=== PATIENT | male | born 1970 | race Caucasian/White ===

== ENCOUNTER 2021-09-12 09:42 | Outpatient (CLI) | payer OTHER, SELFPAY ==
--- NOTE | ~2021-09-12 | US_ITS ---
EXAMINATION: US venous doppler LE RT EXAM DATE: 09/12/2021 10:32 INDICATION: Right leg swelling. TECHNIQUE: Multiple grayscale, color flow and Doppler images of the right lower extremity deep venous system were obtained and reviewed. There is no prior study for comparison. FINDINGS: The right common femoral, femoral and profunda veins demonstrate normal color flow, respira tory variation, augmentation and compressibility. Compressibility, color flow confirmed within the r ight popliteal, posterior tibial, peroneal, and greater saphenous veins. IMPRESSION: No right lower extremity deep venous thrombosis. Reviewed, dictated and finalized at location B. [facility]
[2021-09-12 10:28] LABS: Basophils Absolute Auto 0.1 K/mm3 (0.0-0.1); Basophils Percent Auto 1.5 % (0.2-1.2); Eosinophils Absolute Auto 0.2 K/mm3 (0-0.3); Eosinophils Percent Auto 4.2 % (0-4.4); Hematocrit 47.5 % (42.0-52.0); Hemoglobin 15.2 g/dL (14.0-18.0); Immature Granulocyte Absolute 0.01 K/mm3 (0.00-0.031); Immature Granulocyte Percent A 0.2 % (0-0.5); Lymphocytes Absolute Auto 2.19 K/mm3 (0.9-3.2); Lymphocytes Percent Auto 42.2 % (18.3-44.2); Mean Corpuscular Hemoglobin 25.7 pg (26-34); Mean Corpuscular Volume 80.4 fl (80-100); Mean Platelet Volume 9.4 fl (7.4-10.4); Monocytes Absolute Auto 0.8 K/mm3 (0.1-0.6); Monocytes Percent Auto 14.8 % (2.6-8.5); Neutrophils Absolute Auto 1.9 K/mm3 (1.3-6.7); Neutrophils Percent Auto 37.1 % (45.5-73.1); Platelet Count Result 252 k/mm3 (150-375); Red Blood Count 5.91 M/mm3 (4.6-6.20); Red Cell Distribution Width 15.9 % (11.5-14.5); White Blood Count 5.2 K/mm3 (4.5-10.0)
== END 2021-09-12 09:43 | disposition home or self-care (01) ==
PROVIDERS: PCP Student in an Organized Health Care Education/Training Program; Visit Provider Student in an Organized Health Care Education/Training Program
DX: E78.5 Hyperlipidemia, unspecified (principal); M79.89 Other specified soft tissue disorders
CPT/HCPCS: 36415; 85025; 93971

== ENCOUNTER 2022-12-17 11:15 | Outpatient (RCR) | payer OTHER, SELFPAY ==
--- NOTE | 2022-11-14 08:59 | PTOPEVAL1 ---
Assessment and note entered by Lucy Bae, PT Evaluation Information Assessment Status Evaluation Diagnosis dorsalgia Onset Aug 2022 Subjective Information chronic back pain, gradually increase in pain without injury to back; trying to get disability; trying to get MRI but insurance will not cover until have PT; have had 2 back surgeries; want to see the back surgeon, but cannot see him for an appointment, until I have an MRI; last saw the surgeon in 2018, as follow up after last back surgery; Reported Pain Level Pain Score Self Report Additional Pain Score Comments pain range of 3-7/10 in past week; nerve pains that are intense- from low back to L toes--ice pick driven into leg, sometimes in R leg but not as much; R leg swells up, both legs have strange color--dr did circulation tests and nothing showed up; L leg numb since surgery: buttocks, lateral thigh and calf and lateral foot/ankle; reported tolerances: standing 10-15 min; walking 10-15 min; sleep awaken every 1-2 hours; decrease pain with moving/changing position, heat pad, stretch, muscle creams; used to take narcotics, but now take suboxone-- helps some;take over the counter and muscle relaxer Assessment PT Clinical Summary Festus has the diagnosis of dorsalgia. He reports chronic back pain, with history of 2 lumbar surgeries. He has not worked since 2017 due to back pain. Sleeping, sitting, walking and standing tolerances are decreased. His pain is radicular into both R and L LE to toes. Oswestry self assessment score of 54% limitation. With the evaluation: he has poor standing posture with rounded spine and rotation of trunk; limited lumbar mobility; spasms throughout thoracic and lumbar paraspinals; tightness of anterior hip/quads; pain is increased with supine L hip IR and prone on elbows; Discussed aquatic therapy with pt- he reports he does not like to get into the pool with his kids. When he is in the pool, feels great, but when he gets out--back pain is worse because of the heavy feeling. Skilled PT services are indicated for modalities to decrease pain and
--- NOTE | 2022-11-19 10:50 | PCPTNOTE ---
Patient did not show up for scheduled appointment this date. Called patient and he stated that no one called, texted or Email him with the therapy times. Offered him another time today, and rescheduled for 2 pm.
--- NOTE | 2022-11-19 14:32 | PCPTNOTE ---
Pt canelled because he had to take child to urgent care.
--- NOTE | 2022-11-26 11:44 | PCPTNOTE ---
Patient called & cancelled scheduled appointment this date due to not feeling well secondary to medication.
--- NOTE | 2022-12-04 11:52 | PTOPPROG ---
Assessment and note entered by Lucy Bae, PT Evaluation Information Assessment Status Progress Diagnosis dorsalgia Onset Aug 2022 Subjective Information Festus reports: from therapy have some good stretches to help my back in the morning, tricks to help my back during the day; wants to continue therapy--it is helping; pain range in the past week: 3-8 /10; nerve and pinch, sharp pain--radicular pain L to toes and R to toes, more often in the L leg; increase pain standing and walking, activity; decrease pain with stretching, heat, pain meds help pain; Assessment PT Clinical Summary Festus has received 4 PT sessions. He called/ canceled 2 and did not show for 1 appointment. Compared to the initial eval: pain rating is the same at the low rating and 1 more at the high rating, but stated radicular pain is less intense and less often; increased flexibility of R and L quad and lumbar spine with prone on elbows; 2 minute walking test distance increased 50'; self assessment Oswestry score improved from 54% to 48% limitation in activity. He has been educated on a home exercise program and body mechanics/position. The goals were partially met. Continue PT treatment. Plan of Care Interventions Hot Pack/Cold Pack,Manual Therapy,Neuro Re- education,Patient/Caregiver Educati,Therapeutic Activities,Therapeutic Exercise,Ultrasound,Other Other Interventions taping PT Services Indicated Yes Treatment Frequency and 2x/wk for 3 weeks Duration These treatments will address the objective and functional deficits as defined above. The patient will be advanced safely and appropriately in order for the patient to progress towards his/her prior level of function. Additional exercises will be introduced and as well as a comprehensive home exercise program upon discharge, if needed, ?to ensure carryover of functional gains achieved in the clinic. This treatment plan has been reviewed and agreement upon by the patient.
--- NOTE | 2022-12-24 08:54 | PCPTNOTE ---
Patient called & cancelled scheduled appointment yesterday due to calling in sick
--- NOTE | 2022-12-25 07:48 | PCPTNOTE ---
Patient called & cancelled scheduled appointment this date due to still being sick
--- NOTE | 2022-12-29 10:19 | PCPTNOTE ---
pt did not show for today's reeval appt; called pt and unable to leave voice mail due to mailbox is full .
--- NOTE | 2023-01-13 15:36 | PCPTNOTE ---
PHYSICAL THERAPY DISCHARGE 01-13-23 Attending Provider: Greg Steve MD Patient:Michael Hodgson Date of :1970 Mr. Hodgson has not returned for any further treatments since 12/17/2022, therefore he will be discharged at this time. He has received a total of 5 PT sessions for low back pain. He called and canceled 4 and did not show for 3 appointments. The goals were not addressed. Thank you for referring this patient to [facility].
--- NOTE | 2023-01-13 15:39 | PCPTNOTE ---
pt did not show for today's reevaluation; he has been d/c due to multiple N/S and cancelations.
== END 2023-01-15 11:27 | disposition home or self-care (01) ==
LOC: ANHPT 11:15
PROVIDERS: PCP Student in an Organized Health Care Education/Training Program; Visit Provider Psychiatry & Neurology Neurology
DX: M54.9 Dorsalgia, unspecified (principal); M54.2 Cervicalgia
CPT/HCPCS: 97014; 97110; 97161; 97530; 99199; G0283

== ENCOUNTER 2023-01-07 11:32 | Outpatient (CLI) | payer OTHER, SELFPAY ==
--- NOTE | 2023-01-07 11:47 | ECG_ITS ---
Measurements Intervals [place] Rate: 96 P: 6 TN: 144 QRS: -10 QRSD: 100 T: 29 QT: 321 QTc: 406 Interpretive Statements SINUS RHYTHM NO PREVIOUS ECG AVAILABLE FOR COMPARISON Electronically Signed On 01-07-2023 18:14:46 CDT by Eden Jones M.D.
== END 2023-01-07 11:33 | disposition home or self-care (01) ==
LOC: ANHSURGERY 11:35
PROVIDERS: PCP Student in an Organized Health Care Education/Training Program; Visit Provider Otolaryngology
DX: Z01.810 Encounter for preprocedural cardiovascular examination (principal); I10 Essential (primary) hypertension
CPT/HCPCS: 93005

== ENCOUNTER 2023-01-09 01:18 | Day surgery (SDC) | payer OTHER, SELFPAY ==
[2023-01-05 10:39] VITALS: BMI 30.4
--- NOTE | 2023-01-05 10:45 | PC.NURSE ---
Report to the Outpatient Waiting Room, entrance under the green pavilion located off [facility], at time 10:30 on date 01/09/23. Planned Procedure Time: 12:30. Time changes happen often and if your time is changed the preop area will call you the afternoon before. - You and your visitor will be asked to self-screen and do not enter if you have any COVID symptoms. - A mask is optional within the hospital at this time. Patients may have clear liquids (water, carbonated beverages, clear teas, apple juice) until 3 hours prior to surgery (9:30) with a maximum of 20 ounces. - No food from midnight until time of surgery Take the following medications with a SIP of water the morning of surgery: SUBOXONE, GABAPENTIN DO NOT STOP ANY OF YOUR OTHER PRESCRIPTION MEDICATIONS PRIOR TO SURGERY?EXCEPT THE FOLLOWING Medications to discontinue per physician: NABUMETONE Date to take last dose: PER DR. RUSSO Please no make-up, nail japanese, hairspray, perfume, deodorant, or body powder the day of surgery. No jewelry (including any body piercings) or valuables the day of surgery, leave them at home. Please take a shower or bath the night before, or the morning of, surgery with an antibacterial soap. Wear comfortable, loose fitting clothing. - Jewelry must be removed prior to entering the operating room. Rings and piercings that are not removed may be cut off. - The hospital will not accept responsibility for valuables. - Please leave all valuables, including medications, at home the day of surgery. If you are going home after surgery, a licensed horse and wagon driver must drive you home. - NO public transportation without another adult if you receive anesthesia. - We recommend that an adult stay with you for 24 hours following discharge. - We also recommend that you do not drive, make important decision, drink alcoholic beverages, or take any drugs that were not prescribed by your health care provider for at least 24 hours after your discharge time. Follow any additional instructions given to you from your surgeon. If you or anyone in your household have experienced Covid symptoms in the past week, please notify your surgeon or the nurse liaison at the phone number below for possible testing. Telephone instructions given to PT & SPOUSE and asked if any additional questions and then verbalized understanding. Patient advised to call surgeon office or pre surgery nurse liaison [phone] if any additional questions.
--- NOTE | 2023-01-08 10:02 | P.PNAN_ITS ---
Anes - Initial Pre Proc Eval Procedure: Operation Date: 01/09/23 13:30 Proposed Procedures p Endoscopic Septoplasty - Jacques Mosqueda MD s Bilateral Inferior Turbinectomy With Outfracture - Jacques Mosqueda MD Date/Time: 01/08/23 10:02 Surgeon: Jacques Mosqueda MD Pre Op Diagnosis: nasal septal deviation and turbinate hypertrophy Patient Data Age: 52 Gender: M Height: 1.79 m Weight: 97.55 kg Allergies Allergy/AdvReac Type Severity Reaction Status Date / Time Penicillins Allergy Unknown Anaphylaxis Verified 01/09/23 12:23 Home Medications Medication Instructions Recorded Confirmed Type methocarbamol 750 mg tablet See Rx Instructions .Route 11/06/21 01/05/23 Rx .COMPLEX #90 tabs buprenorphine 4 mg-naloxone 1 mg 1 film sublingual DAILY 03/05/22 01/09/23 History sublingual film (Suboxone) nabumetone 500 mg tablet 500 mg PO BID #60 tabs 03/07/22 01/05/23 Rx gabapentin 600 mg tablet See Rx Instructions .Route 07/07/22 01/09/23 Rx .COMPLEX #90 tabs lisinopril 20 mg tablet 20 mg PO DAILY 07/07/22 01/05/23 History fluticasone propionate 50 1 - 2 spray intranasal BID #16 11/05/22 01/05/23 Rx mcg/actuation nasal grams spray,suspension omeprazole 40 mg capsule,delayed 40 mg PO DAILY 11/05/22 01/05/23 History release amitriptyline 50 mg tablet See Rx Instructions .Route 12/24/22 01/05/23 Rx .COMPLEX #30 tabs Patient hx anesthesia problems: none Family hx anesthesia problems: none Results Review: All pre-operative results and documents have been reviewed as part of the pre- operative evaluation. [facility] Past Medical History Medical History (Updated 01/08/23 @ 18:10 by Jacques Mosqueda MD) Chronic pain Deviated nasal septum Hyperlipidemia Hypertension Increased BMI PONV (postoperative nausea and vomiting) Sleep apnea Family History Family History Mother Patient's mother is in good health Father Patient's father is in good health Social History Social History Social History: current smoker Smoking packs per day: 1 Smoking cigarettes per day: 20.0 Years smoked: 38 Smoking pack-years: 38.00 Smoking status: Current every day smoker Tobacco type: cigarettes and e-cigarettes/vaping Alcohol intake: never Substance use: never Substance use type: does not use Living arrangements: with family Spiritual care concerns: No Anes - Eval Final PreProcedure Day of Procedure 01/08/23 10:02 Patient weight: obese Heart: regular rate and rhythm Lungs: clear to auscultation Airway: Mallampati scale class III Neurological: alert and oriented Last oral intake: >/= 8 hours ASA classification: III Emergent: no Anesthetic plan: proceed Anesthesia type and monitoring: general ETT and standard monitoring Results Review: All pre-operative results and documents have been reviewed as part of the pre- operative evaluation. Informed Consent: The patient's anesthetic plan and its attendant risks and benefits were discussed with the patient/family/POA. Questions were solicited and answers provided to the satisfaction of the patient/family/POA.
--- NOTE | 2023-01-08 18:10 | PM.IMHP ---
H&P: HPI History of Present Illness Date/Time: 01/08/23 18:10 Chief Complaint: Septal deviation turbinate hypertrophy nasal obstruction nasal congestion Narrative: planned procedure Review of Systems Review of Systems: All systems reviewed & are unremarkable except as noted in HPI and below [facility] Past Medical History Medical History (Updated 01/08/23 @ 18:10 by Jacques Mosqueda MD) Chronic pain Deviated nasal septum Hyperlipidemia Hypertension Increased BMI PONV (postoperative nausea and vomiting) Sleep apnea Family History Family History Mother Patient's mother is in good health Father Patient's father is in good health Social History Social History (Reviewed 11/05/22 @ 10: by TARAH Villarreal) Social History: current smoker Smoking packs per day: 1 Smoking cigarettes per day: 20.0 Years smoked: 38 Smoking pack-years: 38.00 Smoking status: Current every day smoker Tobacco type: cigarettes and e-cigarettes/vaping Alcohol intake: never Substance use: never Substance use type: does not use Living arrangements: with family Spiritual care concerns: No Meds Home Medications and Allergies Home Medications Medication Instructions Recorded Confirmed Type methocarbamol 750 mg tablet See Rx Instructions .Route 11/06/21 01/05/23 Rx .COMPLEX #90 tabs buprenorphine 4 mg-naloxone 1 mg 1 film sublingual DAILY 03/05/22 01/05/23 History sublingual film (Suboxone) nabumetone 500 mg tablet 500 mg PO BID #60 tabs 03/07/22 01/05/23 Rx gabapentin 600 mg tablet See Rx Instructions .Route 07/07/22 01/05/23 Rx .COMPLEX #90 tabs lisinopril 20 mg tablet 20 mg PO DAILY 07/07/22 01/05/23 History fluticasone propionate 50 1 - 2 spray intranasal BID #16 11/05/22 01/05/23 Rx mcg/actuation nasal grams spray,suspension omeprazole 40 mg capsule,delayed 40 mg PO DAILY 11/05/22 01/05/23 History release amitriptyline 50 mg tablet See Rx Instructions .Route 12/24/22 01/05/23 Rx .COMPLEX #30 tabs Allergies Allergy/AdvReac Type Severity Reaction Status Date / Time Penicillins Allergy Unknown Anaphylaxis Verified 04/10/23 10:36 Exam Narrative: septal deviation turbinate hypertrophy Assessment and Plan Assessment and plan (1) Nasal obstruction: Code(s): J34.89 - Other specified disorders of nose and nasal sinuses Status: Acute Assessment and Plan: plan operating room endoscopic assisted septoplasty and turbinate reduction with outfracture risks were discussed including bleeding infection need for splints need for narcotics need for postop debridements failure to resolve symptoms need for continued use of sprays and medications CSF leak brain brain damage change in vision blindness septal perforation damage to any structure above the clavicles by myself damage to any structure during the induction and maintenance of anesthesia. Patient voiced understanding of these risks and agreed. (2) Hypertrophy of both inferior nasal turbinates: Code(s): J34.3 - Hypertrophy of nasal turbinates Status: Acute (3) Deviated nasal septum: Code(s): J34.2 - Deviated nasal septum Status: Acute (4) Nasal obstruction: Code(s): J34.89 - Other specified disorders of nose and nasal sinuses Status: Acute
[2023-01-09] VITALS (9 sets, daily range): BP systolic 125–165; BP diastolic 71–91; PULSE 87–107; RESP 10–18; TEMP 36.7–37.3; O2SAT 93–98; BMI 30.6
--- NOTE | 2023-01-09 07:14 | WPDHPUPDATE1 ---
History and Physical Update Update Date/Time: 01/09/23 07:14 History and Physical has been reviewed, including an updated exam of the patient. There are NO changes in the patient's condition. Risks, benefits, and alternatives have been discussed and questions answered. Patient agrees to proceed with procedure.
[2023-01-09] MEDS: LACTATED RINGERS 1,000 ML 30 ML IV CONT ×2 (12:10→15:59)
[2023-01-09] MEDS: ACETAMINOPHEN 500 MG TABLET 1000 MG PO (12:17)
[2023-01-09] MEDS: ceFAZolin 2 GM/D5W 50 ML 2 GM/50 ML BAG IVPB (14:10)
[2023-01-09] MEDS: OXYMETAZOLINE HCL 0.05% NAS 15 ML BTL (*BKC) 1 SPRAY NASAL (14:34)
[2023-01-09] MEDS: MUPIROCIN 2% OINT 22 GM TUBE 1 APPLIC EACH NARE (15:21)
[2023-01-09] MEDS: LIDO 1%/EPINEPHRINE 1:100,000 50 ML VIAL 15 ML INFILTRATE (15:21)
--- NOTE | 2023-01-09 17:17 | P.OP_ITS ---
Procedure Note - Detailed Date of Procedure 01/09/23 Pre-op Diagnosis nasal septal deviation and turbinate hypertrophy Post-op Diagnosis Same Procedure Performed Endoscopic assisted septoplasty inferior turbinate reduction with outfracture Surgeon Jacques Mosqueda MD Anesthesia General Indications see above Findings severely deviated septum S shaped turbinate hypertrophy well reduced no concomitant perforations are perforations abutting each other. Description of Procedure Patient identified consent verified. Patient brought operating room. Time- out performed. General anesthesia induced endotracheal tube secured airway. Patient prepped draped position. Afrin-soaked pledgets placed in bilateral nasal passages allowed to sit for 5 minutes. Second time-out performed. Afrin- soaked pledgets removed septum severely deviated. 10 cc 1% lidocaine 1 100,000 parts epinephrine injected deep nasal septum and heads of inferior turbinates. [place] incision made left nasal septal flap elevated. Small tear anteriorly osteotome utilized to cross over and a cartilage that would be removed. Right nasal septal flap elevated. Small perforation not abutting left-sided perforation. Cartilage removed combination osteotome David forceps Efren Yarbroughton forceps. Septum perfectly straight afterwards [place] incision closed with 3 interrupted 5 0 fast gut sutures. Splints placed. Turbinates reduced in the submucosal plane bilaterally anteriorly using microdebrider with inferior turbinate blade. They were then outfractured. Nasal airway much more pain bilaterally. Patient tolerated the procedure well no complications blood loss 25 cc. I performed all dictated portions. [place] splints were then placed sutured anteriorly using a mattressed 3-0 nylon suture. Patient taken to PACU no complications. Estimated Blood Loss -25.0 Drains No Packing No Pathology None sent Complications No immediate complications Condition Stable Disposition PACU [facility] Billing Surgery - Charge Forward: Surgery Billing
== END 2023-01-09 18:00 | disposition home or self-care (01) ==
PROVIDERS: PCP Student in an Organized Health Care Education/Training Program; Visit Provider Otolaryngology
PROC: (CPT 30520; principal; 2023-01-09 13:30)
DX: J34.2 Deviated nasal septum (principal); J34.3 Hypertrophy of nasal turbinates; J34.89 Other specified disorders of nose and nasal sinuses; I10 Essential (primary) hypertension; E78.5 Hyperlipidemia, unspecified; G89.29 Other chronic pain; G47.30 Sleep apnea, unspecified; F17.290 Nicotine dependence, other tobacco product, uncomplicated; F17.210 Nicotine dependence, cigarettes, uncomplicated; Z79.891 Long term (current) use of opiate analgesic; E66.9 Obesity, unspecified; Z68.30 Body mass index [BMI] 30.0-30.9, adult
CPT/HCPCS: 30520; 30140; A9270; J0330; J0690; J1100; J2250; J2405; J2704; J3010; J7120

== ENCOUNTER 2023-03-12 13:45 | Outpatient (RCR) | payer OTHER, SELFPAY ==
--- NOTE | 2023-02-13 12:16 | PTOPEVAL1 ---
Assessment and note entered by Azul Ruvalcaba PT Evaluation Information Assessment Status Evaluation Diagnosis back pain, knee pain Onset back pain chronic, knee pain unknown onset Subjective Information Patient referred to PT due to back and L knee pain . Patient reports he stopped physical therapy a month or so again and his back pain returned. Patient reports L knee pain began right when he stopped physical therapy. Patient reports pain in back and left knee as 5/10. No imaging has been completed. Pain in back and L knee limit ability to perform prolonged standing at home. Goal: to decrease pain in order to perform chores in home without pain Reported Pain Level Pain Score 5,5: Self Report Assessment PT Clinical Summary Patient is 52 year old male referred to physical therapy due to back pain and left knee pain. Patient rates pain as 5/10 in both locations on this date, back pain radiates into left leg currently. Patient presents with decreased lumbar extension, decreased knee flexion range of motion, and decreased strength of L hip extensor/knee flexors/ankle dorsiflexors. Recommending skilled therapy services 1-2x/wk for 4 weeks in order to improve core and lower extremity strength, improve mobility of lumbar spine and L knee in order to decrease reports of pain and radicular symptoms Plan of Care Interventions Aquatic Therapy,Electrical Stimulation,Gait Training,Hot Pack/Cold Pack,Manual Lymph Drainage, Manual Therapy,Mechanical Traction,Neuro Re- education,Patient/Caregiver Education,Therapeutic Activities,Therapeutic Exercise,Ultrasound Other Interventions IASTM, taping, cupping PT Services Indicated Yes Treatment Frequency and 1-2x/wk for 4 weeks Duration These treatments will address the objective and functional deficits as defined above. The patient will be advanced safely and appropriately in order for the patient to progress towards his/her prior level of function. Additional exercises will be introduced and as well as a comprehensive home exercise program upon discharge, if needed, ?to ensure carryover of functional gains achieved in the clinic. This treatment plan has been reviewed and agreement upon by the patient.
--- NOTE | 2023-02-27 10:33 | PCPTNOTE ---
Patient did not show up for scheduled appointment this date. Called and spoke with Pt. He apologized for forgetting to call. I'm sorry, I forgot to call. My father in law is sick and I'm taking him to the urgent care. I'm sorry. Reassured Pt and let him know we understand family emergencies happen. This is Pt's first N/S.
--- NOTE | 2023-03-05 10:53 | PCPTNOTE ---
Patient did not show up for visit, called patient with no answer left voicemail. Instructed patient to call for further scheduling.
--- NOTE | 2023-03-12 14:20 | PTOPDC ---
Assessment and note entered by Azul Ruvalcaba, PT Evaluation Information Assessment Status Discharge Diagnosis back pain, knee pain Onset back pain chronic, knee pain unknown onset Subjective Information Patient reports pain as 3/10 in low back into foot and L knee. Patient reports he does feel improvements. Patient does say when he does his exercises he notices improvement in his pain. Patient reports he is very busy and has missed some recent therapy visits. Patient agrees that he is ready for DC from therapy due to noticing improvement in mobility when exercises completed however chronic pain continues to be present. Reported Pain Level Pain Score 3,3: Self Report Assessment PT Clinical Summary Patient has partially met goals with pain being decreased to 3/10 in back and L knee. Patient has demonstrated improvement in LLE strength, L knee range of motion, mobility of lumbar spine at this time and also reports a decrease in LLE radicular symptoms. Patient reports pain is still a 3/10 end of session however states that the pain has eased up some. Patient reports moments of intermittent relief in pain but it does not last. Will DC PT due to max progress achieved and patient reporting he feels better when he keeps up with his exercises. Reviewed home exercise program for back and knee and educated regarding importance of compliance. Reviewed use of heat/ice in home environment. Plan of Care PT Services Indicated No
== END 2023-03-12 15:23 | disposition home or self-care (01) ==
LOC: ANHPT 13:45
PROVIDERS: PCP Student in an Organized Health Care Education/Training Program
DX: M25.562 Pain in left knee (principal)
CPT/HCPCS: 97014; 97110; 97140; 97162; 97530; 99199; G0283

== ENCOUNTER 2023-05-19 09:24 | Observation (INO) | payer OTHER, SELFPAY ==
[2023-05-19] VITALS (16 sets, daily range): BP systolic 155–220; BP diastolic 89–115; PULSE 86–111; RESP 12–25; TEMP 36.3–36.7; O2SAT 95–100; BMI 31.6
--- NOTE | ~2023-05-19 | XR_ITS ---
EXAMINATION: XR cholangiogram surg 1st inj DATE: 05/21/2023 13:28 INDICATION: Intraoperative cholangiogram TECHNIQUE: 254 fluoroscopic images of the right upper quadrant were obtained during intraoperative ch olangiography performed by the surgeon. I was not present in the operating room. Fluoroscopy exposure time was 49.7 seconds. COMPARISON: None. FINDINGS: No stones are identified in the common bile duct. There appears to be a stricture of the di stal common bile duct. IMPRESSION: 1. No stones of the common bile duct with possible common bile duct stricture. Follow-up with MRCP or ERCP is recommended. Reviewed, dictated and finalized at location A.
--- NOTE | ~2023-05-19 | US_ITS ---
EXAMINATION: US right upper quadrant DATE: 05/20/2023 14:55 INDICATION: Acute cholecystitis TECHNIQUE: Multiple grayscale and Doppler ultrasound images of the abdomen were obtained. COMPARISON: CT dated 05/19/2023 FINDINGS: The majority the pancreas is obscured. The visualized portion of the pancreatic body appears normal. Liver has normal echogenicity and contour, with a smooth surface. No liver lesion identified. No intr ahepatic biliary duct dilation suspected. Portal venous flow was seen in the hepatopetal, normal dire ction and has normal Doppler waveform. Gallbladder measures approximately 12.5 cm length and up to 4. 2 cm in maximal diameter. A few small nodular echogenic lesions without definitive posterior acoustic shadowing seen along the dependent wall of the gallbladder including at the neck, the largest measur ing 7 mm. These may represent gallbladder polyps. Cannot exclude small nonshadowing stones. IMPRESSION: 1. Echogenic foci in the dependent aspect of the gallbladder without definitive shadowing which may r epresent gallbladder polyps, sludge and/or stones. No significant gallbladder wall thickening or xavi cholecystic fluid. Reviewed, dictated and finalized at location A. IMPRESSION: 1. Echogenic foci in the dependent aspect of the gallbladder without definitive shadowing which may represent gallbladder polyps, sludge and/or stones. No sig nificant gallbladder wall thickening or pericholecystic fluid.
--- NOTE | ~2023-05-19 | XR_ITS ---
XR chest 2V 05/19/2023 10:19 Indication: Right lower anterior chest pain. Hypertension. Procedure: PA and lateral views of the chest Comparison: 10/05/2018 Findings: Heart size is normal. Bibasilar infiltrates. No pleural effusion. No edema. No pneumothorax . No acute osseous abnormality. Impression: 1: Bibasilar infiltrates may represent atelectasis or pneumonia. Reviewed, dictated and finalized at location L. Impression: 1: Bibasilar infiltrates may represent atelectasis or pneumonia.
--- NOTE | ~2023-05-19 | CT_ITS ---
EXAMINATION: CTA chest PE abdomen pel DATE: 05/19/2023 12:58 INDICATION: Right chest pain. Right upper quadrant abdominal pain. TECHNIQUE: Computed tomography angiography (CTA) of the chest was performed with 100 mL Omnipaque-350 intravenous contrast timed to evaluate the pulmonary arteries. Coronal maximum intensity projection 3D-reconstructions were created by the technologist. Computed tomography (CT) of the abdomen and pelv is was performed with intravenous contrast. Automated exposure control and iterative reconstruction t echnique were employed. The dose-length product was 1566.47 mGy-cm. COMPARISON: None. FINDINGS: CTA chest: The lungs demonstrate mild atelectasis. There is a 5 mm nodule in left lower lobe, likely benign. Calcified right lung nodules and calcified right hilar lymph nodes are consistent with old gr anulomatous disease. There is a pneumatocele in right middle lobe. No pleural effusion. The heart siz e is normal. No pericardial effusion. There is no pulmonary embolus. There is mild aortic atheroscler osis. There is mild chronic anterior wedging of multiple thoracic vertebral bodies. There is mild tho racic spondylosis. CT abdomen and pelvis: The liver is normal. The gallbladder is distended and contains gallstones. The re is a gallstone lodged in the gallbladder neck. Calcifications in the spleen are consistent with ol d granulomatous disease. The pancreas, adrenal glands, and kidneys are normal. There are no dilated l oops of bowel. The appendix is normal. There are no pathologically enlarged lymph nodes. There is no free intraperitoneal fluid. There is severe lumbar spondylosis. IMPRESSION: 1. Acute cholecystitis. 2. No pulmonary embolus. Reviewed, dictated and finalized at location A.
--- NOTE | ~2023-05-19 | MR_ITS ---
EXAMINATION: MR MRCP wo/w con/w 3D wo ind DATE: 05/22/2023 12:41 INDICATION: Common bile duct stricture. TECHNIQUE: Magnetic resonance imaging (MRI) of the abdomen was performed without and with 20 mL Multi Juany intravenous contrast. Sequences included coronal T2-weighted FS FSE, coronal T2-weighted FSE, a xial T1-weighted LAVA, coronal FS FIESTA, axial dual-echo T1-weighted SPGR, coronal lava-FLEX, sagitt al T2-weighted FSE, axial T2-weighted FSE, and axial DWI. Thick-slab T2-weighted FSE images were obta ined for magnetic resonance cholangiopancreatography (MRCP). Maximum intensity projection 3-D reconst ructions of the volumetric data were created by the technologist. Postcontrast sequences included cor onal LAVA-flex and time course of axial T1-weighted LAVA. COMPARISON: CT abdomen and pelvis 05/19/2023, cholangiogram 05/21/2023 FINDINGS: ABDOMEN MRI: The liver and spleen are normal. The pancreas, adrenal glands, and kidneys are normal. T here are changes of cholecystectomy. There are no dilated loops of bowel. There are no pathologically enlarged lymph nodes. There is no free intraperitoneal fluid. ABDOMEN MRCP: The common duct is normal and measures 6 mm. No stone or abnormal mass. IMPRESSION: 1. No bile duct stricture. Reviewed, dictated and finalized at location A. IMPRESSION: 1. No bile duct stricture.
--- NOTE | 2023-05-19 09:26 | ECG_ITS ---
Measurements Intervals [place] Rate: 103 P: 22 DC: 174 QRS: -16 QRSD: 101 T: 32 QT: 325 QTc: 427 Interpretive Statements SINUS TACHYCARDIA POSSIBLE LEFT ATRIAL ENLARGEMENT [-0.1mV P WAVE IN V1/V2] ABNORMAL RHYTHM ECG COMPARED TO ECG 01/07/2023 11:58:18 SINUS TACHYCARDIA NOW PRESENT Electronically Signed On 05-19-2023 11:27:51 CDT by Eden Jones M.D.
[2023-05-19 09:48] LABS: Basophils Absolute Auto 0.1 K/mm3 (0.0-0.1); Eosinophils Absolute Auto 0.2 K/mm3 (0-0.3); Eosinophils Percent Auto 2.6 % (0-4.4); Hemoglobin 17.2 g/dL (14.0-18.0); Immature Granulocyte Absolute 0.02 K/mm3 (0.00-0.031); Immature Granulocyte Percent A 0.3 % (0-0.5); Lymphocytes Absolute Auto 2.23 K/mm3 (0.9-3.2); Lymphocytes Percent Auto 30.5 % (18.3-44.2); Mean Corpuscular HGB Conc 32.5 g/dl (32-36); Mean Corpuscular Hemoglobin 28.4 pg (26-34); Mean Corpuscular Volume 87.5 fl (80-100); Mean Platelet Volume 10.4 fl (7.4-10.4); Monocytes Absolute Auto 0.7 K/mm3 (0.1-0.6); Neutrophils Absolute Auto 4.1 K/mm3 (1.3-6.7); Neutrophils Percent Auto 55.6 % (45.5-73.1); Platelet Count Result 213 k/mm3 (150-375); Red Blood Count 6.06 M/mm3 (4.6-6.20); Red Cell Distribution Width 14.4 % (11.5-14.5); White Blood Count 7.3 K/mm3 (4.5-10.0)
[2023-05-19 10:00] LABS: Alanine Aminotransferase 35 U/L (6-50); Albumin Level 4.5 g/dL (3.5-5.1); Alkaline Phosphatase 60 U/L (38-126); Anion Gap 5 mmol/L (8-16); Aspartate Amino Transferase 48 U/L (17-59); Bilirubin,Total 0.8 mg/dL (0.2-1.3); Blood Urea Nitrogen 15 mg/dL (9-20); Calcium 9.1 mg/dL (8.4-10.2); Carbon Dioxide 31 mmol/L (22-30); Chloride 97 mmol/L (98-107); Estimated CRCL calculation 113 ml/min; Estimated Glomerular Filt Rate > 60; Glucose 141 mg/dL (65-110); Lipase 38 U/L (23-300); Potassium 3.6 mmol/L (3.4-5.0); Sodium 133 mmol/L (137-145)
[2023-05-19 10:02] LABS: INR 0.9; Prothrombin Time 12.6 Seconds (11.1-14.7)
[2023-05-19 10:03] LABS: Partial Thromboplastin Time 27.9 SECONDS (22.3-36.8)
[2023-05-19 10:12] LABS: Troponin I < 0.012 ng/mL (0.000-0.034)
--- NOTE | 2023-05-19 11:11 | PC.NURSE ---
Received verbal order for pain meds from Dr. Kamara. When this RN went to give meds pt refused and stated he cannot take pain medicine. Pt states he only takes Suboxone which he already took today. This RN wasted medications and documented not given in NOV. Patient still waiting to be seen by provider.
--- NOTE | 2023-05-19 11:40 | PC.NURSE ---
Pt states he called doctor and they are okay with him having pain medication. Pain meds are going to be re ordered by verbal order to ALFA Escobar.
[2023-05-19] MEDS: HYDROmorphone HCL INJ (*CRX) 1 MG/ML SYR 0.5 MG IV PUSH ×3 (11:45→15:15)
--- NOTE | 2023-05-19 12:35 | ED.GENADULT ---
HPI - General Adult General Chief complaint: Chest Pain Stated complaint: chest pain Time Seen by Provider: 05/19/23 11:55 History of Present Illness HPI narrative: 52-year-old male presented the ED for evaluation of upper quadrant pain that radiates to her back that started approximately 830 this morning. Patient does report associated chest pain and shortness of breath. Patient reports he has had recent constipation and since this morning he has had decreased flatus and no stool. Patient denies any prior history of gallbladder disease denies any prior history of bowel obstruction or abdominal surgeries. Patient reports a right upper quadrant firmness/mass that started today. Related Data Home Medications Medication Instructions Recorded Confirmed buprenorphine 4 mg-naloxone 1 mg 1 film sublingual DAILY 03/05/22 05/19/23 sublingual film (Suboxone) lisinopril 20 mg tablet 20 mg PO DAILY 07/07/22 05/19/23 omeprazole 40 mg capsule,delayed 40 mg PO DAILY 11/05/22 05/19/23 release amitriptyline 50 mg tablet 50 mg PO HS 05/19/23 05/19/23 fluticasone propionate 50 1 - 2 spray intranasal BID PRN 05/19/23 05/19/23 mcg/actuation nasal Congestion spray,suspension gabapentin 600 mg tablet 600 mg PO BID 05/19/23 05/19/23 lactulose 20 gram/30 mL oral 20 g PO BID PRN Constipation 05/19/23 05/19/23 solution linaclotide 290 mcg capsule 290 mcg PO DAILY 05/19/23 05/19/23 methocarbamol 750 mg tablet 750 mg PO TID 05/19/23 05/19/23 multivit,Ca,min-iron 8 mg-folic 1 tablet PO DAILY 05/19/23 05/19/23 acid 200 mcg-lycopene 600 mcg tablet (Centrum Men) Allergies Allergy/AdvReac Type Severity Reaction Status Date / Time Penicillins Allergy Unknown Anaphylaxis Verified 05/19/23 09:37 Review of Systems Review of Systems: All systems reviewed & are unremarkable except as noted in HPI and below PMFSH Past Medical History Medical History Chronic pain Deviated nasal septum Hyperlipidemia Hypersomnia Hypertension Increased BMI PONV (postoperative nausea and vomiting) Sleep apnea Sleep walking Tobacco abuse Family History Family History Mother Patient's mother is in good health Father Patient's father is in good health Social History Social History Social History: current smoker Smoking packs per day: 1 Smoking cigarettes per day: 20.0 Years smoked: 35 Smoking pack-years: 35.00 Smoking status: Current every day smoker Tobacco type: e-cigarettes/vaping Additional smoking assessment comments: stopped smoking cigaretts a year ago. now vaps refills every 10 days Alcohol intake: former Substance use: former Substance use type: marijuana Last use: 21 years ago Lack of Transportation: No Lack of Food: Never True Current Housing: I Have Housing Concerned About Future Housing: No Difficulty Paying Gas/Electric Bills: No Difficulty Paying for Meds: No Currently Unemployed: No Education: High School Diploma/GED Difficulty w/ Childcare or Family Care: No Living arrangements: with family Spiritual care concerns: No Exam Narrative: APPEARANCE: Well appearing, no pain, no distress, well-nourished. HEAD: normocephalic, atraumatic. EYES: PERRLA/EOMI, conjunctivae clear. NOSE: Normal no drainage EARS:TMS clear with good light reflex. THROAT: Pharynx clear, no exudate. NECK: Supple. No adenopathy, no masses. RESPIRATORY: Airway patent, respirations nonlabored. Clear to auscultation bilaterally, no rales, rhonchi, wheezing. CARDIOVASCULAR: Regular rate and rhythm without murmurs rubs or gallops. ABDOMINAL: Right upper quadrant tenderness to palpation MUSCULOSKELETAL: Moves all extremities. Strength/ROM intact, No edema, No calf tenderness. NEURO: Alert. Cranial nerves II through XII intact. PSYCHIATRIC: Norm
[2023-05-19 13:10] LABS: Troponin I < 0.012 ng/mL (0.000-0.034)
[2023-05-19] MEDS: hydrALAZINE HCL 20 MG/ML VIAL 10 MG IV PUSH (13:28)
[2023-05-19] MEDS: metroNIDAZOLE 500 MG/ISO 100ML 500 MG/100 ML BAG 100 MG IVPB ×3 (13:33→23:18)
[2023-05-19] MEDS: SODIUM CHLORIDE 0.9% IV 1,000 ML 999 ML IV CONT (14:18)
[2023-05-19] MEDS: levoFLOXacin 750 MG/D5W 150 ML 750 MG/150 ML BAG 100 MG IVPB (14:42)
--- NOTE | 2023-05-19 15:16 | PM.IMHP ---
H&P: HPI History of Present Illness Date/Time: 05/19/23 15:16 Chief Complaint: Patient presented to the emergency department for chest pain, admitted for acute cholecystitis. Narrative: This is a 52-year-old male patient history of hypertension, chronic back pain and prior back surgery, former narcotic abuser on Suboxone, chronic constipation who presented to the emergency department after sudden development chest pain upon awakening this morning around 8:00 a.m.. Patient reports sustained chest pain since awakening with nausea no vomiting. Patient reports history of chronic constipation for which he takes Linzess and occasional lactulose. Patient took his daily medications this morning including Suboxone and so far has not been able to have any pain control with multiple doses of IV Dilaudid. CTA imaging completed to rule out aortic dissection identified acute cholecystitis with gallstone stuck in the neck of the gallbladder. No ductal dilation. Review of Systems Review of Systems: All systems reviewed & are unremarkable except as noted in HPI and below Constitutional: Comments: Denies fever chills ENT: Comments: No problems since prior sinus surgery Respiratory: Comments: No wheezing Gastrointestinal: Comments: Nausea without vomiting, feels like a mass is present right upper quadrant under his rib Genitourinary: Comments: No complaints PMFSH Past Medical History Medical History Chronic pain Deviated nasal septum Hyperlipidemia Hypersomnia Hypertension Increased BMI PONV (postoperative nausea and vomiting) Sleep apnea Sleep walking Tobacco abuse Family History Family History Mother Patient's mother is in good health Father Patient's father is in good health Social History Social History Social History: current smoker Smoking packs per day: 1 Smoking cigarettes per day: 20.0 Years smoked: 38 Smoking pack-years: 38.00 Smoking status: Current every day smoker Tobacco type: cigarettes and e-cigarettes/vaping Alcohol intake: former Substance use: former Substance use type: marijuana Last use: 21 years ago Lack of Transportation: No Lack of Food: Never True Current Housing: I Have Housing Concerned About Future Housing: No Difficulty Paying Gas/Electric Bills: No Difficulty Paying for Meds: No Currently Unemployed: No Education: High School Diploma/GED Difficulty w/ Childcare or Family Care: No Living arrangements: with family Spiritual care concerns: No Meds Home Medications and Allergies Home Medications Medication Instructions Recorded Confirmed Type buprenorphine 4 mg-naloxone 1 mg 1 film sublingual DAILY 03/05/22 05/19/23 History sublingual film (Suboxone) lisinopril 20 mg tablet 20 mg PO DAILY 07/07/22 05/19/23 History omeprazole 40 mg capsule,delayed 40 mg PO DAILY 11/05/22 05/19/23 History release amitriptyline 50 mg tablet 50 mg PO HS 05/19/23 05/19/23 History fluticasone propionate 50 1 - 2 spray intranasal BID PRN 05/19/23 05/19/23 History mcg/actuation nasal Congestion spray,suspension gabapentin 600 mg tablet 600 mg PO BID 05/19/23 05/19/23 History lactulose 20 gram/30 mL oral 20 g PO BID PRN Constipation 05/19/23 05/19/23 History solution linaclotide 290 mcg capsule 290 mcg PO DAILY 05/19/23 05/19/23 History methocarbamol 750 mg tablet 750 mg PO TID 05/19/23 05/19/23 History multivit,Ca,min-iron 8 mg-folic 1 tablet PO DAILY 05/19/23 05/19/23 History acid 200 mcg-lycopene 600 mcg tablet (Centrum Men) Allergies Allergy/AdvReac Type Severity Reaction Status Date / Time Penicillins Allergy Unknown Anaphylaxis Verified 05/19/23 09:37 Vital Signs Vital Signs - 24 hr 05/19/23 09:32 05/19/23 09:41
--- NOTE | 2023-05-19 15:40 | ADMGEN ---
This patient, Michael Hodgson, was admitted to IMU Room 203-01. Patient/family oriented to hospital policies and general routines including ID bracelet, bed and alarms, visiting hours, pain management, procedures, bathroom and other care routines, personal items, smoking policy, room service/diet, and visiting hours. Information on how to activate the Rapid Response Team has been discussed. Patient/Family are encouraged to report perceived risks to care and to ask questions if they do not understand what they are told or what they should do.
[2023-05-19] MEDS: LABETALOL HCL INJ 100 MG/20 ML VIAL 20 MG IV PUSH (15:48)
[2023-05-19] MEDS: HYDROmorphone HCL INJ (*CRX) 1 MG/ML SYR 2 MG IV PUSH (16:05)
[2023-05-19] MEDS: ONDANSETRON INJ 4 MG/2 ML VIAL IV PUSH (16:48)
[2023-05-19] MEDS: CALCIUM CARBONATE (TUMS) 500 MG (200 MG ELEMENTAL) 400 MG PO (16:48)
[2023-05-19] MEDS: SODIUM CHLORIDE 0.9% IV 1,000 ML 125 ML IV CONT (16:50)
[2023-05-19 16:57] LABS: Troponin I < 0.012 ng/mL (0.000-0.034)
[2023-05-19] MEDS: ACETAMINOPHEN 500 MG TABLET 1000 MG PO (17:15)
[2023-05-19] MEDS: GABAPENTIN 300 MG CAPSULE 600 MG PO (17:16)
[2023-05-19] MEDS: LORazepam INJ (*CRX) 2 MG/ML VIAL 1 MG IV PUSH (17:48)
[2023-05-19] MEDS: KETOROLAC 15 MG/ML VIAL (*BKC) IV PUSH ×2 (17:49→23:49)
[2023-05-19] MEDS: PANTOPRAZOLE SODIUM IV 40 MG VIAL IV PUSH (18:16)
[2023-05-19] MEDS: methocarbamoL 750 MG TABLET PO (18:17)
[2023-05-19] MEDS: AMITRIPTYLINE HCL 25 MG TABLET 50 MG PO (20:02)
[2023-05-19] MEDS: CALCIUM CARBONATE (TUMS) 500 MG (200 MG ELEMENTAL) PO (23:49)
[2023-05-19] MEDS: diphenhydrAMINE HCl CAP 25 MG CAPSULE 50 MG PO (23:50)
[2023-05-20] VITALS (14 sets, daily range): BP systolic 124–167; BP diastolic 61–83; PULSE 89–101; RESP 16–18; TEMP 36.5–37; O2SAT 94–100
[2023-05-20] MEDS: SODIUM CHLORIDE 0.9% IV 1,000 ML 125 ML IV CONT ×4 (00:05→23:59)
[2023-05-20] MEDS: metroNIDAZOLE 500 MG/ISO 100ML 500 MG/100 ML BAG 100 MG IVPB ×4 (05:13→23:59)
[2023-05-20 05:32] LABS: Basophils Percent Auto 0.2 % (0.2-1.2); Eosinophils Percent Auto 0.1 % (0-4.4); Hemoglobin 15.1 g/dL (14.0-18.0); Immature Granulocyte Absolute 0.04 K/mm3 (0.00-0.031); Immature Granulocyte Percent A 0.3 % (0-0.5); Lymphocytes Absolute Auto 1.15 K/mm3 (0.9-3.2); Lymphocytes Percent Auto 9.3 % (18.3-44.2); Mean Corpuscular HGB Conc 32.1 g/dl (32-36); Mean Corpuscular Hemoglobin 28.3 pg (26-34); Mean Corpuscular Volume 88.2 fl (80-100); Mean Platelet Volume 10.9 fl (7.4-10.4); Monocytes Absolute Auto 1.2 K/mm3 (0.1-0.6); Neutrophils Percent Auto 80.1 % (45.5-73.1); Platelet Count Result 192 k/mm3 (150-375); Red Blood Count 5.33 M/mm3 (4.6-6.20); Red Cell Distribution Width 14.4 % (11.5-14.5); White Blood Count 12.4 K/mm3 (4.5-10.0)
[2023-05-20 05:41] LABS: Alanine Aminotransferase 27 U/L (6-50); Albumin Level 3.7 g/dL (3.5-5.1); Alkaline Phosphatase 51 U/L (38-126); Anion Gap 7 mmol/L (8-16); Aspartate Amino Transferase 35 U/L (17-59); Bilirubin,Total 1.5 mg/dL (0.2-1.3); Blood Urea Nitrogen 14 mg/dL (9-20); Calcium 8.7 mg/dL (8.4-10.2); Carbon Dioxide 27 mmol/L (22-30); Chloride 98 mmol/L (98-107); Estimated CRCL calculation 114 ml/min; Estimated Glomerular Filt Rate > 60; Glucose 92 mg/dL (65-110); Lipase 23 U/L (23-300); Potassium 4.2 mmol/L (3.4-5.0); Sodium 132 mmol/L (137-145)
--- NOTE | 2023-05-20 08:56 | PM.IMPN ---
Progress Note: A&P Assessment and Plan (1) Acute cholecystitis: Code(s): K81.0 - Acute cholecystitis Status: Acute Assessment and Plan: Likely operating room today or tomorrow per General surgery (2) Hypertension: Code(s): I10 - Essential (primary) hypertension Status: Acute Assessment and Plan: Blood pressures remain elevated but improved over yesterday. Blood pressure reviewed on 05/20 (3) History of opioid abuse: Code(s): F11.11 - Opioid abuse, in remission Status: Acute Assessment and Plan: On Suboxone regularly, difficult to manage pain at this time for this reason. (4) Tobacco abuse: Code(s): Z72.0 - Tobacco use Status: Acute Assessment and Plan: Declined nicotine patch (5) Chronic pain: Code(s): G89.29 - Other chronic pain Status: Acute Assessment and Plan: Chronic back pain and history opioid abuse makes pain control of acute pain harder. (6) Sleep apnea: Code(s): G47.30 - Sleep apnea, unspecified Status: Acute Plan Gallbladder ultrasound as ordered by General surgery Possible MRCP verses lap choly with intraoperative coli angiogram Continue to attempt pain control. Time Spent With Patient Time with patient: 25 - 35 minutes Subjective Date/time seen: 05/20/23 08:56 Interval history: This is a 52-year-old male patient admitted for acute cholecystitis. Patient seen this morning states he still having a lot of pain but it is better than on admission yesterday. Patient has history of substance abuse was on Suboxone so we had difficulty controlling his pain. Surgery saw patient this morning plans on obtaining gallbladder ultrasound and likely operative removal. Unsure if surgery will happen today or tomorrow. Patient denies fever chills any new symptoms. Pain control still a problem. Review of Systems Review of Systems: All systems reviewed & are unremarkable except as noted in HPI and below Constitutional: Comments: Denies fever chills ENT: Comments: No problems since prior sinus surgery Respiratory: Comments: No wheezing Gastrointestinal: Comments: Nausea without vomiting, feels like a mass is present right upper quadrant under his rib Genitourinary: Comments: No complaints Exam Narrative: GENERAL: Alert and oriented seated on the edge of the bed in mild to moderate pain distress. Pleasant and conversational in full sentences. HEENT: Pupils are equally round and briskly reactive to light. Extraocular muscles are intact. Oral mucous membranes are moist without lesions. NECK: The patient has no noted JVD. No adenopathy is appreciated. CHEST/LUNGS: Lungs are clear bilaterally without rhonchi, rales, or wheezes. HEART: The patient has a normal rate and regular rhythm, sinus rhythm on telemetry monitoring by my own review. No murmurs, rubs, or gallops are appreciated. Distal pulses are 2+. ABDOMEN: The patient?s abdomen is soft, right upper quadrant tenderness. Bowel sounds are positive. EXTREMITIES: The patient has no peripheral edema. There is no focal long bone tenderness or deformity. SKIN: The patient?s skin is warm and dry, without rashes or lesions. PSYCHIATRIC: The patient has normal mental status and has an appropriate affect. Exhibiting significant pain. NEUROLOGIC: There are no gross deficits to the cranial nerves. Patient ambulates with steady gait. Objective Data Vital Signs Vital Signs: Vital Signs - 24 hr 05/19/23 09:32 05/19/23 09:41 05/19/23 09:54 Temperature 36.3 C L Pulse Rate 100 95 Respiratory Rate 12 Blood Pressure 155/114 H Pulse Oximetry 98 99 Oxygen Delivery Room Air Room Air 05/19/23 09:37 05/19/23 09:47 05/19/23 11:51 Temperature Pulse Rate 107 H 94 102 H Respiratory Rate 18 20 24 H Blood Pressure 155/114 H 187/98 H 220/115 H Pulse Oximetry 97 98 99 Oxygen Delivery 05/19/23 10:45
[2023-05-20] MEDS: CALCIUM CARBONATE (TUMS) 500 MG (200 MG ELEMENTAL) PO ×3 (09:09→21:24)
[2023-05-20] MEDS: THERAPEUTIC MULTIVITAMINS/MINERALS TAB (*BKC) 1 TABLET PO (09:09)
[2023-05-20] MEDS: LINACLOTIDE 145 MCG CAPSULE 290 MCG PO (09:09)
[2023-05-20] MEDS: lisinopriL 20 MG TABLET PO (09:09)
[2023-05-20] MEDS: PANTOPRAZOLE SODIUM IV 40 MG VIAL IV PUSH ×2 (09:10→21:24)
[2023-05-20] MEDS: GABAPENTIN 300 MG CAPSULE 600 MG PO ×2 (09:10→17:54)
[2023-05-20] MEDS: methocarbamoL 750 MG TABLET PO ×3 (09:10→17:54)
[2023-05-20] MEDS: KETOROLAC 15 MG/ML VIAL (*BKC) IV PUSH ×3 (09:11→21:24)
--- NOTE | 2023-05-20 09:22 | PM.CNGS ---
Assessment and Plan Assessment and plan (1) Acute cholecystitis: Code(s): K81.0 - Acute cholecystitis Status: Acute Assessment and Plan: I have reviewed the CT and discussed the findings with the patient. He has evidence of acute cholecystitis. I would like to get a gallbladder ultrasound this morning. White blood count and bilirubin did increase slightly from yesterday. Patient might need MRCP to further assess, or could consider laparoscopic cholecystectomy with intraoperative cholangiogram. I have discussed proceeding with laparoscopic cholecystectomy if symptoms are persisting. Patient will be kept NPO for now, but if surgery is going to be delayed until tomorrow, then could consider clear liquids today. (2) Hypertension: Code(s): I10 - Essential (primary) hypertension Status: Acute (3) Chronic pain: Code(s): G89.29 - Other chronic pain Status: Acute (4) History of opioid abuse: Code(s): F11.11 - Opioid abuse, in remission Status: Acute History of Present Illness Consult details Consult date: 05/20/23 Reason for consult: other (Acute cholecystitis) Requesting physician: Jose Francisco Kamara MD Narrative: This is a 52-year-old man who I am asked to see for acute cholecystitis. He presented to the emergency department yesterday morning with severe abdominal pain that started around 8 in the morning. He does not recall anything that he ate yesterday that could have caused it. He has never had any symptoms like this before. In the emergency department he was worked up for potential cardiac causes and underwent CT chest/abdomen/pelvis. This showed evidence of acute cholecystitis with gallstone at the neck of the gallbladder. He was also noted to have significant hypertension. He was admitted for further treatment. Since being admitted yesterday his pain is somewhat better. He denies any nausea or vomiting. He does deal with chronic constipation. Review of Systems Review of Systems: All systems reviewed & are unremarkable except as noted in HPI and below Constitutional: Constitutional: Denies chills and Denies fever(s) Eyes: Eyes: Denies change in vision ENT: Denies hearing loss, Denies neck pain and Denies sore throat Cardiovascular: Cardiovascular: Denies chest pain and Denies dyspnea Respiratory: Respiratory: Denies cough, Denies dyspnea and Denies wheezing Gastrointestinal: Gastrointestinal: Reports as per HPI Genitourinary: Genitourinary: Denies hematuria and Denies dysuria Musculoskeletal: Musculoskeletal: Denies arthralgias, Denies joint swelling and Denies neck pain Allergic/Immunologic: Allergic/Immunologic: Denies wheezing PMFSH Past Medical History Medical History (Updated 05/20/23 @ 09:28 by Jose R Lazo DO) Chronic pain Deviated nasal septum History of opioid abuse Hyperlipidemia Hypersomnia Hypertension Increased BMI PONV (postoperative nausea and vomiting) Sleep apnea Sleep walking Tobacco abuse Family History Family History Mother Patient's mother is in good health Father Patient's father is in good health Social History Social History Social History: current smoker Smoking packs per day: 1 Smoking cigarettes per day: 20.0 Years smoked: 35 Smoking pack-years: 35.00 Smoking status: Current every day smoker Tobacco type: e-cigarettes/vaping Additional smoking assessment comments: stopped smoking cigaretts a year ago. now vaps refills every 10 days Alcohol intake: former Substance use: former Substance use type: marijuana Last use: 21 years ago Lack of Transportation: No Lack of Food: Never True Current Housing: I Have Housing Concerned About Future Housing: No Difficulty Paying Gas/Electric Bills: No Difficulty Paying for Meds: No Currently Unemployed: No Education:
[2023-05-20] MEDS: ACETAMINOPHEN 500 MG TABLET 1000 MG PO (13:21)
[2023-05-20] MEDS: levoFLOXacin 750 MG/D5W 150 ML 750 MG/150 ML BAG 100 MG IVPB (14:38)
--- NOTE | 2023-05-20 19:58 | PC.NURSE ---
Report called for transfer to 3 Medical room 341. Patient informed, oncoming nurse updated and prepared to receive patient. Defer assessment. Patient currently A&Ox4 and in stable condition other than mild-moderate abdominal pain being reported.
[2023-05-20] MEDS: diphenhydrAMINE HCl CAP 25 MG CAPSULE 50 MG PO (21:24)
[2023-05-20] MEDS: AMITRIPTYLINE HCL 25 MG TABLET 50 MG PO (21:24)
[2023-05-21] VITALS (15 sets, daily range): BP systolic 100–160; BP diastolic 52–85; PULSE 85–126; RESP 12–20; TEMP 36.2–37.6; O2SAT 93–98
[2023-05-21] MEDS: ACETAMINOPHEN 500 MG TABLET 1000 MG PO (04:32)
[2023-05-21] MEDS: CALCIUM CARBONATE (TUMS) 500 MG (200 MG ELEMENTAL) PO (04:32)
[2023-05-21] MEDS: KETOROLAC 15 MG/ML VIAL (*BKC) IV PUSH (04:32)
[2023-05-21 05:59] LABS: Basophils Absolute Auto 0.1 K/mm3 (0.0-0.1); Basophils Percent Auto 0.3 % (0.2-1.2); Eosinophils Percent Auto 0.2 % (0-4.4); Hemoglobin 14.8 g/dL (14.0-18.0); Immature Granulocyte Absolute 0.08 K/mm3 (0.00-0.031); Immature Granulocyte Percent A 0.5 % (0-0.5); Lymphocytes Percent Auto 4.5 % (18.3-44.2); Mean Corpuscular HGB Conc 32.2 g/dl (32-36); Mean Corpuscular Hemoglobin 28.6 pg (26-34); Mean Platelet Volume 10.8 fl (7.4-10.4); Monocytes Absolute Auto 1.7 K/mm3 (0.1-0.6); Monocytes Percent Auto 10.7 % (2.6-8.5); Neutrophils Absolute Auto 12.9 K/mm3 (1.3-6.7); Neutrophils Percent Auto 83.8 % (45.5-73.1); Platelet Count Result 185 k/mm3 (150-375); Red Blood Count 5.17 M/mm3 (4.6-6.20); White Blood Count 15.4 K/mm3 (4.5-10.0)
[2023-05-21] MEDS: metroNIDAZOLE 500 MG/ISO 100ML 500 MG/100 ML BAG 100 MG IVPB ×3 (06:05→17:25)
[2023-05-21 06:15] LABS: Alanine Aminotransferase 29 U/L (6-50); Albumin Level 3.6 g/dL (3.5-5.1); Alkaline Phosphatase 58 U/L (38-126); Anion Gap 4 mmol/L (8-16); Aspartate Amino Transferase 36 U/L (17-59); Bilirubin,Total 1.7 mg/dL (0.2-1.3); Blood Urea Nitrogen 17 mg/dL (9-20); Calcium 8.2 mg/dL (8.4-10.2); Carbon Dioxide 26 mmol/L (22-30); Chloride 101 mmol/L (98-107); Estimated CRCL calculation 116 ml/min; Estimated Glomerular Filt Rate > 60; Glucose 96 mg/dL (65-110); Potassium 3.7 mmol/L (3.4-5.0); Sodium 131 mmol/L (137-145)
[2023-05-21] MEDS: GABAPENTIN 300 MG CAPSULE 600 MG PO ×2 (08:12→16:43)
[2023-05-21] MEDS: PANTOPRAZOLE SODIUM IV 40 MG VIAL IV PUSH ×2 (08:12→21:49)
[2023-05-21] MEDS: methocarbamoL 750 MG TABLET PO ×2 (09:04→16:43)
--- NOTE | 2023-05-21 10:11 | WPDANESEPPF ---
Anes - Initial Pre Proc Eval Procedure: Operation Date: 05/21/23 11:00 Proposed Procedures p Laparoscopic Cholecystectomy, Possible Intraoperative Cholangiogram - Jose R Lazo DO Date/Time: 05/21/23 10:11 Surgeon: Hanna Eng MD Pre Op Diagnosis: Acute Cholecystitis/Hypertension Patient Data Age: 52 Gender: M Height: 1.78 m Weight: 105.6 kg Last Vital Signs Temp 37.0 C 05/21/23 06:07 Pulse 98 05/21/23 06:07 Resp 20 05/21/23 03:51 BP 160/77 H 05/21/23 03:51 Pulse Ox 93 05/21/23 03:51 O2 Del Method Room Air 05/20/23 21:00 Allergies Allergy/AdvReac Type Severity Reaction Status Date / Time Penicillins Allergy Unknown Anaphylaxis Verified 05/19/23 09:37 Home Medications Medication Instructions Recorded Confirmed Type buprenorphine 4 mg-naloxone 1 mg 1 film sublingual DAILY 03/05/22 05/19/23 History sublingual film (Suboxone) lisinopril 20 mg tablet 20 mg PO DAILY 07/07/22 05/19/23 History omeprazole 40 mg capsule,delayed 40 mg PO DAILY 11/05/22 05/19/23 History release amitriptyline 50 mg tablet 50 mg PO HS 05/19/23 05/19/23 History fluticasone propionate 50 1 - 2 spray intranasal BID PRN 05/19/23 05/19/23 History mcg/actuation nasal Congestion spray,suspension gabapentin 600 mg tablet 600 mg PO BID 05/19/23 05/19/23 History lactulose 20 gram/30 mL oral 20 g PO BID PRN Constipation 05/19/23 05/19/23 History solution linaclotide 290 mcg capsule 290 mcg PO DAILY 05/19/23 05/19/23 History methocarbamol 750 mg tablet 750 mg PO TID 05/19/23 05/19/23 History multivit,Ca,min-iron 8 mg-folic 1 tablet PO DAILY 05/19/23 05/19/23 History acid 200 mcg-lycopene 600 mcg tablet (Centrum Men) Laboratory Tests 05/21/23 05:24 WBC 15.4 H K/mm3 (4.5-10.0) RBC 5.17 M/mm3 (4.6-6.20) Hgb 14.8 g/dL (14.0-18.0) Hct 46.0 % (42.0-52.0) MCV 89.0 fl (80-100) MCH 28.6 pg (26-34) MCHC 32.2 g/dl (32-36) RDW 15.0 H % (11.5-14.5) Plt Count 185 k/mm3 (150-375) MPV 10.8 H fl (7.4-10.4) Immature Gran % (Auto) 0.5 % (0-0.5) Neut % (Auto) 83.8 H % (45.5-73.1) Lymph % (Auto) 4.5 L % (18.3-44.2) [place] % (Auto) 10.7 H % (2.6-8.5) Eos % (Auto) 0.2 % (0-4.4) Baso % (Auto) 0.3 % (0.2-1.2) Lymph # (Auto) 0.70 L K/mm3 (0.9-3.2) [place] # (Auto) 1.7 H K/mm3 (0.1-0.6) Eos # (Auto) 0.0 K/mm3 (0-0.3) Baso # (Auto) 0.1 K/mm3 (0.0-0.1) Abs Immat Gran (auto) 0.08 H K/mm3 (0.00-0.031) Absolute Neuts (auto) 12.9 H K/mm3 (1.3-6.7) Absolute Nucleated RBC 0.0 K/mm3 (0.0-0.012) Nucleated RBC % 0.0 % (0.0-0.2) Sodium 131 L mmol/L (137-145) Potassium 3.7 mmol/L (3.4-5.0) Chloride 101 mmol/L (98-107) Carbon Dioxide 26 mmol/L (22-30) Anion Gap 4 L mmol/L (8-16) BUN 17 mg/dL (9-20) Creatinine 0.80 mg/dL (0.7-1.3) Estim Creat Clear Calc 116 ml/min Estimated GFR > 60 (59 - ) Glucose 96 mg/dL (65-110) Calcium 8.2 L mg/dL (8.4-10.2) Total Bilirubin 1.7 H mg/dL (0.2-1.3) AST 36 U/L (17-59) ALT 29 U/L (6-50) Alkaline Phosphatase 58 U/L (38-126) Total Protein 6.0 L g/dL (6.3-8.2) Albumin 3.6 g/dL (3.5-5.1) Patient hx anesthesia problems: none Family hx anesthesia problems: none Results Review: All pre-operative results and documents have been reviewed as part of the pre-operative evaluation. [facility] Past Medical History Medical History Chronic pain Deviated nasal septum History of opioid abuse Hyperlipidemia Hypersomnia Hypertension Increased BMI PONV (postoperative nausea and vomiting) Sleep apnea Sleep walking Tobacco abuse Surgical History Surgical History (Updated 05/21/23 @ 10:12 by Geovanni Membreno MD) H/O sinus surgery Family History Family History (Reviewed 05/21/23 @ 10:12 by
--- NOTE | 2023-05-21 11:21 | WPDHPUPDATE1 ---
History and Physical Update Update Date/Time: 05/21/23 11:21 History and Physical has been reviewed, including an updated exam of the patient. There are NO changes in the patient's condition. Risks, benefits, and alternatives have been discussed and questions answered. Patient agrees to proceed with procedure.
[2023-05-21] MEDS: LACTATED RINGERS 1,000 ML 30 ML IV CONT ×2 (11:37→13:41)
[2023-05-21] MEDS: BUPIVACAINE/EPINEPHRINE 0.5% 30 ML VIAL INFILTRATE (12:31)
--- NOTE | 2023-05-21 13:42 | W.PM.PROC2 ---
Procedure Note - Detailed Date of Procedure 05/21/23 Pre-op Diagnosis Acute Cholecystitis Post-op Diagnosis Same Procedure Performed Laparoscopic cholecystectomy with cholangiogram Surgeon Jose R Lazo, DO Anesthesia General and Local (0.5% bupivacaine) Indications This is a 52 year old man who presented to the emergency department 2 days ago with upper abdominal pain. His pain persisted throughout the day and was continuing to worsen. He had never experienced anything like this before. In the emergency department he was found to have evidence of acute calculous cholecystitis on CT. His white blood count and liver enzymes were normal. He was admitted and placed on IV antibiotics. The following morning his white blood count had increased slightly and he did have a slightly elevated total bilirubin level. Discussions were made with the patient about treatment options and decision was made to proceed with laparoscopic cholecystectomy with cholangiogram. Findings Laparoscopic cholecystectomy with cholangiogram was performed. The gallbladder was acutely inflamed with omentum adhesed to the entire body and fundus. The gallbladder was tense and dilated had to be decompressed with a laparoscopic aspirating needle. The gallbladder wall was hyperemic and indurated. The cystic duct appeared normal in size. Intraoperative cholangiogram was obtained using Omnipaque contrast. The images were sent to Radiology for interpretation. The contrast was visualized into the distal common bile duct and duodenum but it did appear somewhat narrowed at the distal common bile duct. The gallbladder was removed and sent to the lab for pathology. Description of Procedure Procedure as well as risks, benefits, and alternatives were discussed with patient. Written consent was obtained and placed in chart prior to procedure. The patient was brought back to surgical suite. Patient was placed in supine position on operating table. Time-out was done to confirm patient and procedure. Patient was then intubated by the anesthesia department. Abdomen was prepped and draped in sterile fashion using chlorhexidine prep. 0.5% bupivacaine with epinephrine was infiltrated at each site of incision. A 5 millimeter incision was made near the umbilicus, and a 5 millimeter Optiview trocar was advanced through the abdominal layers under direct visualization. Once inside the abdominal cavity, carbon dioxide was insufflated to create a pneumoperitoneum. The camera was inserted and the abdomen was inspected. No immediate abnormalities were identified. The patient was placed in reverse Trendelenburg position and rotated slightly to the left. An 11 millimeter incision was made in the subxiphoid region, and an 11 millimeter trocar was inserted under direct visualization. Two 5 millimeter incisions were made in the right upper quadrant, and two 5 millimeter trocars were inserted under direct visualization. The gallbladder was identified and grasped at the fundus and retracted superiorly. It was then grasped at the infundibulum retracted laterally. Careful dissection around the neck of the gallbladder was performed using blunt dissection with a [place] grasper and hook electrocautery. The cystic duct was identified, and a window was created behind it. The cystic artery was also identified and a window was created behind it. The critical view of safety was identified, visualizing the cystic duct running directly into the neck of the gallbladder, and the cystic artery running directly into the wall of the gallbladder. A 5 millimeter clip uniforms sales representative was then used to place 2 clips proximally and 1 clip distally on the cystic artery. It was then transected using endoscopic scissors. The [place] clamp was then placed across the distal neck of the gallbladder and the [place] cholangiocatheter was advanced to the distal neck of the gallbladder. The catheter flushed with saline with ease and aspirated with eas
[2023-05-21] MEDS: levoFLOXacin 750 MG/D5W 150 ML 750 MG/150 ML BAG 100 MG IVPB (14:00)
[2023-05-21] MEDS: lisinopriL 20 MG TABLET PO (15:11)
[2023-05-21] MEDS: THERAPEUTIC MULTIVITAMINS/MINERALS TAB (*BKC) 1 TABLET PO (15:11)
[2023-05-21] MEDS: LINACLOTIDE 145 MCG CAPSULE 290 MCG PO (15:11)
[2023-05-21] MEDS: IBUPROFEN IV 800 MG/200 ML 800 MG/200 ML BAG 400 MG IVPB ×2 (15:15→21:48)
--- NOTE | 2023-05-21 16:23 | PM.IMPN ---
Progress Note: A&P Assessment and Plan (1) Acute cholecystitis: Code(s): K81.0 - Acute cholecystitis Status: Acute Assessment and Plan: Postop day 0 pain medication on board Gen surgery to help with post op care monitor drainage from WILLIAM drain Stable (2) Hypertension: Code(s): I10 - Essential (primary) hypertension Status: Acute Assessment and Plan: Blood pressures remain elevated but improved over yesterday. Blood pressure reviewed on 05/20 Current 121/73 Stable continue to trend (3) History of opioid abuse: Code(s): F11.11 - Opioid abuse, in remission Status: Acute Assessment and Plan: On Suboxone regularly, difficult to manage pain at this time for this reason. (4) Tobacco abuse: Code(s): Z72.0 - Tobacco use Status: Acute Assessment and Plan: Declined nicotine patch (5) Chronic pain: Code(s): G89.29 - Other chronic pain Status: Acute Assessment and Plan: Chronic back pain and history opioid abuse makes pain control of acute pain harder. (6) Sleep apnea: Code(s): G47.30 - Sleep apnea, unspecified Status: Acute Assessment and Plan: Stable Plan Gallbladder ultrasound as ordered by General surgery Possible MRCP verses lap choly with intraoperative coli angiogram Continue to attempt pain control. Time Spent With Patient Time: 48 minutes Subjective Date/time seen: 05/21/23 16:00 Interval history: 05/21/23 Patient just returned from surgery. Patient was doing well. He was having slight pain but not as bad. Currently denies any chest pain, shortness a breath, nausea, vomiting, diarrhea constipation. 05/20/23 This is a 52-year-old male patient admitted for acute cholecystitis. Patient seen this morning states he still having a lot of pain but it is better than on admission yesterday. Patient has history of substance abuse was on Suboxone so we had difficulty controlling his pain. Surgery saw patient this morning plans on obtaining gallbladder ultrasound and likely operative removal. Unsure if surgery will happen today or tomorrow. Patient denies fever chills any new symptoms. Pain control still a problem. Review of Systems Review of Systems: All systems reviewed & are unremarkable except as noted in HPI and below Objective Data Vital Signs Vital Signs: Vital Signs - 24 hr 05/20/23 18:00 05/20/23 20:00 05/20/23 21:00 Temperature 98.6 F Pulse Rate 89 91 91 Respiratory Rate 18 18 Blood Pressure 128/76 Pulse Oximetry 100 100 Oxygen Delivery Room Air Oxygen Flow Rate 05/20/23 23:59 05/21/23 03:51 05/21/23 06:07 Temperature 98.5 F 99.7 F H 98.6 F Pulse Rate 95 126 H 98 Respiratory Rate 18 20 Blood Pressure 136/61 160/77 H Pulse Oximetry 99 93 Oxygen Delivery Oxygen Flow Rate 05/21/23 08:10 05/21/23 11:04 05/21/23 13:41 Temperature 98.3 F 97.1 F L Pulse Rate 103 H 90 Respiratory Rate 18 14 Blood Pressure 142/77 H 100/52 L Pulse Oximetry 96 97 Oxygen Delivery Room Air Room Air Simple Face Mask Oxygen Flow Rate 6 05/21/23 13:55 05/21/23 14:10 05/21/23 14:25 Temperature Pulse Rate 90 95 97 Respiratory Rate 14 14 16 Blood Pressure 112/57 L 121/64 128/75 Pulse Oximetry 98 98 97 Oxygen Delivery Simple Face Mask Simple Face Mask Simple Face Mask Oxygen Flow Rate 6 6 6 05/21/23 14:40 05/21/23 14:55 05/21/23 15:33 Temperature Pulse Rate 111 H 100 Respiratory Rate 18 12 Blood Pressure 128/78 117/74 Pulse Oximetry 97 96 96 Oxygen Delivery Room Air Nasal Cannula Nasal Cannula Oxygen Flow Rate 2 2 05/21/23 15:10 05/21/23 15:25 Temperature 98.7 F 98.7 F Pulse Rate 85 89 Respiratory Rate 16 16 Blood Pressure 122/67 129/62 Pulse Oximetry 95 97 Oxygen Delivery Oxygen Flow Rate Intake/Output Intake/Output: Intake & Output 05/18/23 05/19/23 05/20/23 05/21/23 23:59 23:59 23:59 23:59 Intake To
[2023-05-21] MEDS: LACTATED RINGERS 1,000 ML 100 ML IV CONT (16:40)
[2023-05-21] MEDS: LACTULOSE 20 GM/30 ML UDC PO (19:57)
[2023-05-21] MEDS: AMITRIPTYLINE HCL 25 MG TABLET 50 MG PO (21:49)
[2023-05-22 00:02] VITALS: BP 132/72; PULSE 102; RESP 16; TEMP 36.9; O2SAT 96
[2023-05-22] MEDS: metroNIDAZOLE 500 MG/ISO 100ML 500 MG/100 ML BAG 100 MG IVPB ×3 (01:03→13:57)
[2023-05-22] MEDS: IBUPROFEN IV 800 MG/200 ML 800 MG/200 ML BAG 400 MG IVPB ×2 (03:23→13:59)
[2023-05-22 04:41] VITALS: BP 145/71; PULSE 84; RESP 14; TEMP 36.5; O2SAT 97
[2023-05-22 05:50] LABS: Basophils Percent Auto 0.2 % (0.2-1.2); Hematocrit 40.6 % (42.0-52.0); Hemoglobin 12.7 g/dL (14.0-18.0); Immature Granulocyte Absolute 0.09 K/mm3 (0.00-0.031); Immature Granulocyte Percent A 0.7 % (0-0.5); Lymphocytes Percent Auto 5.3 % (18.3-44.2); Mean Corpuscular HGB Conc 31.3 g/dl (32-36); Mean Corpuscular Hemoglobin 28.2 pg (26-34); Mean Corpuscular Volume 90.2 fl (80-100); Mean Platelet Volume 10.9 fl (7.4-10.4); Monocytes Absolute Auto 0.9 K/mm3 (0.1-0.6); Monocytes Percent Auto 7.1 % (2.6-8.5); Neutrophils Absolute Auto 11.4 K/mm3 (1.3-6.7); Neutrophils Percent Auto 86.7 % (45.5-73.1); Platelet Count Result 182 k/mm3 (150-375); Red Cell Distribution Width 15.2 % (11.5-14.5); White Blood Count 13.2 K/mm3 (4.5-10.0)
[2023-05-22 06:01] LABS: Alanine Aminotransferase 31 U/L (6-50); Albumin Level 3.2 g/dL (3.5-5.1); Alkaline Phosphatase 73 U/L (38-126); Anion Gap 3 mmol/L (8-16); Aspartate Amino Transferase 44 U/L (17-59); Bilirubin,Total 0.9 mg/dL (0.2-1.3); Blood Urea Nitrogen 20 mg/dL (9-20); Calcium 7.9 mg/dL (8.4-10.2); Carbon Dioxide 26 mmol/L (22-30); Chloride 101 mmol/L (98-107); Estimated CRCL calculation 115 ml/min; Estimated Glomerular Filt Rate > 60; Glucose 179 mg/dL (65-110); Potassium 3.8 mmol/L (3.4-5.0); Sodium 130 mmol/L (137-145)
--- NOTE | 2023-05-22 06:46 | WPDGICN ---
Assessment and Plan Assessment and plan (1) Common bile duct stricture: Code(s): K83.1 - Obstruction of bile duct Status: Acute Assessment and Plan: chemistries do not suggest obstruction of the bile duct but the cholangiogram does show narrowing when she needs to be investigated. I will schedule for MRCP. I explained the patient that if he has a stricture, narrowing, that we would perform ERCP with stent placement. (2) Acute cholecystitis: Code(s): K81.0 - Acute cholecystitis Status: Acute Assessment and Plan: He had uneventful cholecystectomy yesterday. Plan MRCP today. If abnormal then he would need an ERCP possibly later today. GI Consult Note Consult date/time: 05/22/23 06:46 HPI: Michael Hodgson is a 52 year old male who presented to the emergency room a few days ago with acute upper abdominal pain. He has not had pain like that in the past. CT had revealed cholecystitis. He underwent laparoscopic cholecystectomy and cholangio g yesterday. The procedure was uneventful. Images of the cholangiogram suggested narrowing of the distal common bile duct. He has never been jaundiced. He has not had itching or dark urine. His liver function studies are normal. ? Review of Systems Review of Systems: All systems reviewed & are unremarkable except as noted in HPI and below PMFSH Past Medical History Medical History Chronic pain Deviated nasal septum History of opioid abuse Hyperlipidemia Hypersomnia Hypertension Increased BMI PONV (postoperative nausea and vomiting) Sleep apnea Sleep walking Tobacco abuse Surgical History Surgical History H/O sinus surgery Family History Family History Mother Patient's mother is in good health Father Patient's father is in good health Social History Social History Social History: current smoker Smoking packs per day: 1 Smoking cigarettes per day: 20.0 Years smoked: 35 Smoking pack-years: 35.00 Smoking status: Current every day smoker Tobacco type: e-cigarettes/vaping Additional smoking assessment comments: stopped smoking cigaretts a year ago. now vaps refills every 10 days Alcohol intake: former Substance use: former Substance use type: marijuana Last use: 21 years ago Lack of Transportation: No Lack of Food: Never True Current Housing: I Have Housing Concerned About Future Housing: No Difficulty Paying Gas/Electric Bills: No Difficulty Paying for Meds: No Currently Unemployed: No Education: High School Diploma/GED Difficulty w/ Childcare or Family Care: No Living arrangements: with family Spiritual care concerns: No Meds Home Medications and Allergies Home Medications Medication Instructions Recorded Confirmed Type buprenorphine 4 mg-naloxone 1 mg 1 film sublingual DAILY 03/05/22 05/19/23 History sublingual film (Suboxone) lisinopril 20 mg tablet 20 mg PO DAILY 07/07/22 05/19/23 History omeprazole 40 mg capsule,delayed 40 mg PO DAILY 11/05/22 05/19/23 History release amitriptyline 50 mg tablet 50 mg PO HS 05/19/23 05/19/23 History fluticasone propionate 50 1 - 2 spray intranasal BID PRN 05/19/23 05/19/23 History mcg/actuation nasal Congestion spray,suspension gabapentin 600 mg tablet 600 mg PO BID 05/19/23 05/19/23 History lactulose 20 gram/30 mL oral 20 g PO BID PRN Constipation 05/19/23 05/19/23 History solution linaclotide 290 mcg capsule 290 mcg PO DAILY 05/19/23 05/19/23 History methocarbamol 750 mg tablet 750 mg PO TID 05/19/23 05/19/23 History multivit,Ca,min-iron 8 mg-folic 1 tablet PO DAILY 05/19/23 05/19/23 History acid 200 mcg-lycopene 600 mcg tablet (Centrum Men) tramadol 50 mg tablet 50 mg PO Q4H PRN pain #10 tabs
[2023-05-22 08:47] VITALS: BP 132/76; PULSE 84; RESP 18; TEMP 36.6; O2SAT 97
--- NOTE | 2023-05-22 11:00 | PM.DS ---
DS: Admitting Diagnosis Discharge Date 05/22/23 1100 Admitting Diagnosis acute cholecystitis DS: Discharge Diagnosis Discharge Diagnosis (1) Acute cholecystitis: Code(s): K81.0 - Acute cholecystitis Status: Acute Assessment and Plan: Postop day 1 pain medication on board Gen surgery to help with post op care monitor drainage from WILLIAM drain Stable WILLIAM drain removed today (2) Hypertension: Code(s): I10 - Essential (primary) hypertension Status: Acute Assessment and Plan: Blood pressures remain elevated but improved over yesterday. Blood pressure reviewed on 05/20 Current 121/73 Stable continue to trend (3) History of opioid abuse: Code(s): F11.11 - Opioid abuse, in remission Status: Acute Assessment and Plan: On Suboxone regularly, difficult to manage pain at this time for this reason. (4) Tobacco abuse: Code(s): Z72.0 - Tobacco use Status: Acute Assessment and Plan: Declined nicotine patch (5) Chronic pain: Code(s): G89.29 - Other chronic pain Status: Acute Assessment and Plan: Chronic back pain and history opioid abuse makes pain control of acute pain harder. (6) Sleep apnea: Code(s): G47.30 - Sleep apnea, unspecified Status: Acute Assessment and Plan: Stable Plan Gallbladder ultrasound as ordered by General surgery Possible MRCP verses lap choly with intraoperative coli angiogram Continue to attempt pain control. DS: Summary Hospital Course Hospital Course: patient is a 52-year-old male with a past medical history of hypertension, chronic back pain, drug abuse, constipation who presented the ED with complaints chest pain with nausea. CTA was performed in found acute cholecystitis. Patient was initially started on Levaquin and Flagyl. General surgery was consulted and patient went Through cholecystectomy on 05/21/2023. Pain was controlled with pain medications. MRCP was performed to rule out possible obstruction or narrowing. MRCP was negative showed 6 mm bile duct. Drain has been removed. Patient is currently stable for discharge for labs and vital signs. Patient will need to follow up with surgery as instructed. Status at Discharge Functional status at discharge: independent ambulation Overall status at discharge: patient is progressing back to baseline Time Spent with Patient Time attestation: Total time spent providing and/or coordinating discharge services: 49 minutes Time spent: Greater than 30 minutes Specific discharge activities: Diagnostic testing, chart review, developing a treatment plan, education, care coordination documentation, physical exam, result review Exam Narrative: General: well-nourished, well-appearing 52-year-old female, sitting up in bed, comfortable, NARD Neuro: awake, alert and oriented x4, speech clear, no focal neuro deficits noted HEENMT: normocephalic, atraumatic, EOMI, sclerae anicteric, moist oral mucosa Respiratory: Clear to auscultation bilaterally without crackles, rhonchi or wheezes, nonlabored breathing Cardio: regular rate, regular rhythm with S1-S2 Abdomen: nondistended, normoactive bowel sounds, soft, nontender to palpation, 4 incision with glue, no redness, drainage, or swelling Extremities: no edema, erythema, or tenderness to palpation, DP pulses 2+ bilaterally Skin: no rashes or lesions, warm and dry Psych: appropriate mood and affect, judgment and insight intact DS: Data Data Completed and Pending Completed studies during hospitalization: Pending at discharge 05/21/23 12:22 Surgical [PTH] Routine Labs on day of discharge: Labs from last 24 hours 05/22/23 05:20 WBC 13.2 H RBC 4.50 L Hgb 12.7 L Hct 40.6 L MCV 90.2 MCH 28.2 MCHC 31.3 L RDW 15.2 H Plt Count 182 MPV 10.9 H Immature Gran % (Auto) 0.7 H Neut % (Auto) 86.7 H Lymph % (Auto) 5.3 L [place] % (Auto) 7.1 Eos % (Auto) 0.0 Baso %
[2023-05-22 12:47] VITALS: BP 143/78; PULSE 85; RESP 16; TEMP 36.6; O2SAT 97
--- NOTE | 2023-05-22 13:10 | PM.PNGS ---
Progress Note: A&P Assessment and Plan (1) Acute cholecystitis: Code(s): K81.0 - Acute cholecystitis Status: Acute Assessment and Plan: Doing well on POD#1. Remove WILLIAM drain today. MRCP looks normal. OK to discharge from surgical standpoint. F/U in 2 weeks. (2) History of opioid abuse: Code(s): F11.11 - Opioid abuse, in remission Status: Acute (3) Tobacco abuse: Code(s): Z72.0 - Tobacco use Status: Acute (4) Hypertension: Code(s): I10 - Essential (primary) hypertension Status: Acute Subjective Subjective Date/Time Seen: 05/22/23 13:10 Interval history: Doing well on POD#1. Wants to go home. tolerating diet. Pain controlled. Exam GI: Inspection: non-distended, incision (intact with glue) and other (WILLIAM serosanguinous) GI Palp: Yes Soft to palpation and Yes Tenderness to palpation present (GI) (incisional) Objective Data Vital Signs Vital Signs: Vital Signs - 24 hr 05/21/23 13:41 05/21/23 13:55 05/21/23 14:10 Temperature 36.2 C L Pulse Rate 90 90 95 Respiratory Rate 14 14 14 Blood Pressure 100/52 L 112/57 L 121/64 Pulse Oximetry 97 98 98 Oxygen Delivery Simple Face Mask Simple Face Mask Simple Face Mask Oxygen Flow Rate 6 6 6 Fraction of Inspired Oxygen 05/21/23 14:25 05/21/23 14:40 05/21/23 14:55 Temperature Pulse Rate 97 111 H 100 Respiratory Rate 16 18 12 Blood Pressure 128/75 128/78 117/74 Pulse Oximetry 97 97 96 Oxygen Delivery Simple Face Mask Room Air Nasal Cannula Oxygen Flow Rate 6 2 Fraction of Inspired Oxygen 05/21/23 15:33 05/21/23 15:10 05/21/23 15:25 Temperature 37.1 C 37.1 C Pulse Rate 85 89 Respiratory Rate 16 16 Blood Pressure 122/67 129/62 Pulse Oximetry 96 95 97 Oxygen Delivery Nasal Cannula Oxygen Flow Rate 2 Fraction of Inspired Oxygen 05/21/23 16:00 05/21/23 17:55 05/21/23 20:47 Temperature 36.7 C 37.1 C Pulse Rate 91 100 114 H Respiratory Rate 18 16 Blood Pressure 121/73 139/85 Pulse Oximetry 94 94 98 Oxygen Delivery Nasal Cannula Oxygen Flow Rate 2 Fraction of Inspired Oxygen 28 05/21/23 20:00 05/22/23 00:02 05/22/23 04:41 Temperature 36.9 C 36.5 C Pulse Rate 102 H 84 Respiratory Rate 16 14 Blood Pressure 132/72 145/71 H Pulse Oximetry 96 97 Oxygen Delivery Room Air Oxygen Flow Rate Fraction of Inspired Oxygen 05/22/23 08:38 05/22/23 08:47 Temperature 36.6 C Pulse Rate 84 Respiratory Rate 18 Blood Pressure 132/76 Pulse Oximetry 97 Oxygen Delivery Room Air Oxygen Flow Rate Fraction of Inspired Oxygen Intake/Output Intake/Output: Intake & Output 05/19/23 05/20/23 05/21/23 05/22/23 23:59 23:59 23:59 23:59 Intake Total 350 4790 1662 300 Output Total 1 1430 Balance 350 4789 232 300 Meds/Results Medications: Active Medications Generic Name Dose Route Start Last Admin Trade Name Freq PRN Reason Stop Dose Admin Acetaminophen 1,000 mg 05/19/23 23:00 05/21/23 04:32 Acetaminophen 500 Mg Tablet PO 1,000 mg Q6H PRN Administration Pain Rated 5 or Less Amitriptyline HCl 50 mg 05/19/23 21:00 05/21/23 21:49 Amitriptyline Hcl 25 Mg Tablet PO 50 mg HS LOW Administration Calcium Carbonate 200 mg 05/19/23 16:39 05/21/23 04:32 Calcium Carbonate (Tums) 500 Mg (200 Mg Elemental) PO 200 mg Q6H PRN Administration Indigestion Diphenhydramine HCl 50 mg 05/19/23 16:57 05/20/23 21:24 Diphenhydramine Hcl Cap 25 Mg Capsule PO 50 mg HS PRN Administration insomnia Fluticasone Propionate 1 - 2 spray 05/19/23 16:51 Fluticasone Propionate 0.05% Na Spr 16 Gm Btl (*Bkc) NASAL BID PRN Congestion Gabapentin 600 mg 05/19/23 17:00 05/21/23 16:43 Gabapentin 300 Mg Capsule PO 600 mg BID LOW Administration Hydralazine HCl 10 mg 05/19/23 15:29 Hydralazine Hcl 20 Mg/Ml Vial IV PUSH Q8H PRN Blood Pressure - High Hydromorphone HCl 0.5 m
--- NOTE | 2023-05-22 13:44 | WPDANESPN ---
Anes - Prog Note Post-Op Date/Time: 05/22/23 13:44 Cardiovascular status: normal Respiratory status: normal Airway patency: baseline Mental status: baseline Post-Op hydration status: normal Vital Signs: Last Vital Signs Temp 97.8 F 05/22/23 12:47 Pulse 85 05/22/23 12:47 Resp 16 05/22/23 12:47 BP 143/78 H 05/22/23 12:47 Pulse Ox 97 05/22/23 12:47 O2 Del Method Room Air 05/22/23 08:38 O2 Flow Rate 2 05/21/23 17:55 FiO2 28 05/21/23 17:55 Pain Score (VAS): 3-4 I/O: Intake & Output 05/21/23 05/22/23 05/22/23 23:59 07:59 15:59 Intake Total 762 300 Balance 762 300 Laboratory Tests 05/22/23 05:20 05/22/23 05:20 05/22/23 05:20 WBC 13.2 H RBC 4.50 L Hgb 12.7 L Hct 40.6 L MCV 90.2 MCH 28.2 MCHC 31.3 L RDW 15.2 H Plt Count 182 MPV 10.9 H Immature Gran % (Auto) 0.7 H Neut % (Auto) 86.7 H Lymph % (Auto) 5.3 L [place] % (Auto) 7.1 Eos % (Auto) 0.0 Baso % (Auto) 0.2 Lymph # (Auto) 0.70 L [place] # (Auto) 0.9 H Eos # (Auto) 0.0 Baso # (Auto) 0.0 Abs Immat Gran (auto) 0.09 H Absolute Neuts (auto) 11.4 H Absolute Nucleated RBC 0.0 Nucleated RBC % 0.0 Sodium 130 L Potassium 3.8 Chloride 101 Carbon Dioxide 26 Anion Gap 3 L BUN 20 Creatinine 0.80 Estim Creat Clear Calc 115 Estimated GFR > 60 Glucose 179 H Calcium 7.9 L Total Bilirubin 0.9 AST 44 ALT 31 Alkaline Phosphatase 73 Total Protein 6.0 L Albumin 3.2 L Post-procedural complaints: none Patient Feedback: Patient satisfied with anesthetic care.
[2023-05-22] MEDS: PANTOPRAZOLE SODIUM IV 40 MG VIAL IV PUSH (13:56)
[2023-05-22] MEDS: THERAPEUTIC MULTIVITAMINS/MINERALS TAB (*BKC) 1 TABLET PO (13:56)
[2023-05-22] MEDS: methocarbamoL 750 MG TABLET PO (13:57)
[2023-05-22] MEDS: LINACLOTIDE 145 MCG CAPSULE 290 MCG PO (13:57)
[2023-05-22] MEDS: lisinopriL 20 MG TABLET PO (13:57)
[2023-05-22] MEDS: levoFLOXacin 750 MG/D5W 150 ML 750 MG/150 ML BAG 100 MG IVPB (13:57)
[2023-05-22] MEDS: GABAPENTIN 300 MG CAPSULE 600 MG PO (13:57)
--- NOTE | 2023-05-22 15:47 | PC.NURSE ---
Addendum entered by Priyanka George RN 05/22/23 16:26: Pt WILLIAM drain was removed at 1357. Pt had 30 mL out put in WILLIAM drain. Pt IV was removed after abx were finished. Pt tolerated well. Pt coming to get pt. Will continue to monitor pt until arrives. Pt will be transported by wheel chair to car upon her arrival. Original Note: Pt discharging home with . Surgery and GI both signed off on pt discharge. GI was called at 1527 to confirm that discharge was ok. Pt had MRCP done today. Pt tolerated well. Pt getting IV antibiotics at this time, will remove IV and discharge pt once finished. Will continue to monitor pt.
== END 2023-05-22 16:45 | disposition home or self-care (01) ==
LOC: ANHED 11:55 → ANHIMU 14:54 → ANH3MED 05-20 20:38
PROVIDERS: Emergency Medicine; Nurse Practitioner; Surgery; Admitting Provider Family Medicine; Emergency Provider Emergency Medicine; PCP Student in an Organized Health Care Education/Training Program; Visit Provider Family Medicine
PROC: 0FT44ZZ Resection of Gallbladder, Percutaneous Endoscopic Approach (ICD-10-PCS; CPT 47562; principal; 2023-05-21 11:00)
DX: K80.00 Calculus of gallbladder with acute cholecystitis without obstruction (principal); I10 Essential (primary) hypertension; F11.11 Opioid abuse, in remission; G89.29 Other chronic pain; M54.9 Dorsalgia, unspecified; G47.30 Sleep apnea, unspecified; R06.02 Shortness of breath; K59.00 Constipation, unspecified; R09.81 Nasal congestion; J34.2 Deviated nasal septum; E78.5 Hyperlipidemia, unspecified; G47.10 Hypersomnia, unspecified; R00.0 Tachycardia, unspecified; R91.8 Other nonspecific abnormal finding of lung field; F17.290 Nicotine dependence, other tobacco product, uncomplicated; Z79.899 Other long term (current) drug therapy
CPT/HCPCS: 47563; 36415; 71046; 71275; 74177; 74183; 74300; 76376; 76705; 80053; 83690; 84484; 85025; 85610; 85730; 87040; 88304; 93005; 96361; 96365; 96366; 96367; 96375; 96376; 99285; A9270; A9577; C9113; G0378; G0379; J0360; J1100; J1170; J1741; J1836; J1885; J1956; J2060; J2250; J2405; J2704; J2710; J3010; J7030; J7120; Q9966; Q9967

== ENCOUNTER 2024-04-22 02:32 | Emergency (ER) | payer OTHER, SELFPAY ==
--- NOTE | ~2024-04-22 | XR_ITS ---
XR chest 2V 04/22/2024 07:36 Indication: Fever Procedure: 2 view chest Comparison: 05/19/2023 Findings: Bibasilar airspace disease, compatible with pneumonia. Heart size normal. No pleural effusi on or pneumothorax. Impression: 1: Bibasilar pneumonia. Reviewed, dictated and finalized at location B. Impression: 1: Bibasilar pneumonia.
--- NOTE | ~2024-04-22 | CT_ITS ---
EXAMINATION: CT abdomen pelvis wo con DATE: 04/22/2024 07:37 INDICATION: Hematuria. Fever. TECHNIQUE: Computed tomography (CT) of the abdomen and pelvis was performed without intravenous contr ast. The dose-length product was 938.74 mGy-cm. Automated exposure control and iterative reconstructi on technique were employed. COMPARISON: CT dated 05/19/2023 FINDINGS: There is airspace consolidation of the right lower lobe with patchy groundglass opacities i n the left lower lobe, consistent with pneumonia. Trace right pleural effusion. Heart size normal. Th ere is evidence of chronic granulomatous disease. Status post cholecystectomy. Calcified granulomas o f the spleen. The pancreas, adrenal glands and kidneys are unremarkable. Moderate colonic fecal loadi ng. Nonobstructive bowel pattern. No abnormal pelvic masses or fluid collections. Moderate lower lumb ar spondylosis. No free air or free fluid. No significant vascular abnormality. No lymphadenopathy. IMPRESSION: 1. Bilateral lower lobe pneumonia. Reviewed, dictated and finalized at location B.
[2024-04-22 02:36] VITALS: BP 202/87; PULSE 102; RESP 20; TEMP 36.7; O2SAT 97
[2024-04-22 03:19] VITALS: BP 112/65; PULSE 106; RESP 20; O2SAT 95
[2024-04-22 03:39] LABS: Appearance Urine Clear (Clear); Bacteria Urine None Seen /hpf; Bilirubin Urine 1+ (Negative); Blood Urine Trace (Negative); Color Urine Dark Yellow (Yellow); Glucose Urine UA Negative (Negative); Ketones Urine Trace mg/dL (Negative); Leukocyte Esterase Ur Trace LEU/UL (Negative); Nitrate Urine Negative (Negative); Non Pathogenic Casts 0-2; Protein Urine 2+ mg/dL (Negative); RBC Urine 21-50 /hpf (0-2); Specific Grav Ur 1.027 (1.001-1.035); Squamous Epithelial Cell Urine None Seen /hpf (Few); WBC Urine 0-5 /hpf (0-3)
[2024-04-22 03:40] LABS: Add Urine Microscopic? YES
[2024-04-22 04:03] LABS: Influenza A QL RT-PCR Negative (Negative); Influenza B QL RT-PCR Negative (Negative); RSV RNA, RT-PCR Negative (Negative); SARS-CoV-2 RNA PCR Negative (Negative)
[2024-04-22 04:46] VITALS: O2SAT 98
[2024-04-22 05:24] VITALS: BP 102/54; PULSE 83; RESP 16; O2SAT 93
[2024-04-22 05:25] LABS: Basophils Percent Auto 0.5 % (0.2-1.2); Eosinophils Percent Auto 0.4 % (0-4.4); Hematocrit 42.2 % (42.0-52.0); Hemoglobin 13.6 g/dL (14.0-18.0); Immature Granulocyte Absolute 0.03 K/mm3 (0.00-0.031); Immature Granulocyte Percent A 0.5 % (0-0.5); Lymphocytes Absolute Auto 0.88 K/mm3 (0.9-3.2); Lymphocytes Percent Auto 16.1 % (18.3-44.2); Mean Corpuscular HGB Conc 32.2 g/dl (32-36); Mean Corpuscular Hemoglobin 27.4 pg (26-34); Mean Corpuscular Volume 84.9 fl (80-100); Mean Platelet Volume 10.1 fl (7.4-10.4); Monocytes Percent Auto 17.8 % (2.6-8.5); Neutrophils Absolute Auto 3.5 K/mm3 (1.3-6.7); Neutrophils Percent Auto 64.7 % (45.5-73.1); Platelet Count Result 184 k/mm3 (150-375); Red Blood Count 4.97 M/mm3 (4.6-6.20); Red Cell Distribution Width 14.4 % (11.5-14.5); White Blood Count 5.5 K/mm3 (4.5-10.0)
[2024-04-22 05:35] LABS: Alanine Aminotransferase 26 U/L (6-50); Albumin Level 3.8 g/dL (3.5-5.1); Alkaline Phosphatase 74 U/L (38-126); Anion Gap 8 mmol/L (4-12); Aspartate Amino Transferase 43 U/L (17-59); Blood Urea Nitrogen 15 mg/dL (9-20); Calcium 8.2 mg/dL (8.4-10.2); Carbon Dioxide 31 mmol/L (22-30); Chloride 96 mmol/L (98-107); Estimated CRCL calculation 100 ml/min; Estimated Glomerular Filt Rate > 60; Glucose 98 mg/dL (65-110); Potassium 4.2 mmol/L (3.4-5.0); Sodium 135 mmol/L (137-145)
[2024-04-22 05:36] LABS: Lactic Acid Reflex 0.6 mmol/L (0.7-2.0)
[2024-04-22 07:19] VITALS: BP 121/67; PULSE 80; RESP 18; O2SAT 97
--- NOTE | 2024-04-22 07:27 | ED.GENADULT ---
HPI - General Adult General Chief complaint: Fever Stated complaint: fever Time Seen by Provider: 04/22/24 06:54 History of Present Illness HPI narrative: 53-year-old male presents to the emergency department for evaluation for fever for 4 days and not feeling well. Patient initially thought he was having a urinary tract infection. Patient did follow-up with urgent care few days ago and had a negative UA. Patient states he is still having some burning with urination. Related Data Home Medications Medication Instructions Recorded Confirmed buprenorphine 4 mg-naloxone 1 mg 1 film sublingual DAILY 03/05/22 11/05/23 sublingual film (Suboxone) lisinopril 20 mg tablet 20 mg PO DAILY 07/07/22 11/05/23 omeprazole 40 mg capsule,delayed 40 mg PO DAILY 11/05/22 11/05/23 release fluticasone propionate 50 1 - 2 spray intranasal BID PRN 05/19/23 11/05/23 mcg/actuation nasal Congestion spray,suspension linaclotide 290 mcg capsule 290 mcg PO DAILY 05/19/23 11/05/23 multivit,Ca,min-iron 8 mg-folic 1 tablet PO DAILY 05/19/23 11/05/23 acid 200 mcg-lycopene 600 mcg tablet (Centrum Men) baclofen 10 mg tablet 10 mg PO DAILY 11/05/23 11/05/23 Allergies Allergy/AdvReac Type Severity Reaction Status Date / Time Penicillins Allergy Unknown Anaphylaxis Verified 03/07/24 10:40 Review of Systems Review of Systems: All systems reviewed & are unremarkable except as noted in HPI and below PMFSH Past Medical History Medical History Chronic pain Chronic radicular pain of lower back Deviated nasal septum History of opioid abuse Hyperlipidemia Hypersomnia Hypertension Increased BMI PONV (postoperative nausea and vomiting) Sleep apnea Sleep walking Tobacco abuse Surgical History Surgical History H/O sinus surgery History of laparoscopic cholecystectomy on 05/21/23 [facility] Family History Family History Mother Patient's mother is in good health Father Patient's father is in good health Social History Social History Social History: current smoker Smoking packs per day: 1 Smoking cigarettes per day: 20.0 Years smoked: 35 Smoking pack-years: 35.00 Smoking status: Current every day smoker Tobacco type: e-cigarettes/vaping Additional smoking assessment comments: stopped smoking cigaretts a year ago. now vaps refills every 10 days Alcohol intake: former Substance use: former Substance use type: marijuana Last use: 21 years ago Do You Feel Safe in your Home?: Yes Lack of Transportation: No Lack of Food: Never True Current Housing: I Have Housing Concerned About Future Housing: No Difficulty Paying Gas/Electric Bills: No Difficulty Paying for Meds: No Currently Unemployed: No Education: Grade School Difficulty w/ Childcare or Family Care: No Living arrangements: with family Spiritual care concerns: No Exam Narrative: APPEARANCE: Tired appearing HEAD: normocephalic, atraumatic. EYES: PERRLA/EOMI, conjunctivae clear. NOSE: Normal no drainage EARS:TMS clear with good light reflex. THROAT: Pharynx clear, no exudate. NECK: Supple. No adenopathy, no masses. RESPIRATORY: Airway patent, respirations nonlabored. Clear to auscultation bilaterally, no rales, rhonchi, wheezing. CARDIOVASCULAR: Regular rate and rhythm without murmurs rubs or gallops. ABDOMINAL: Soft, nontender, nondistended, normal bowel sounds MUSCULOSKELETAL: Moves all extremities. Strength/ROM intact, No edema, No calf tenderness. NEURO: Alert. Cranial nerves II through XII intact. Grossly intact SKIN: Warm, dry. Normal Color Course Course Emergency Course: Patient was treated for pneumonia and discharged home. Vital Signs Vital signs: Vital Signs Temperature 98.0 F
== END 2024-04-22 08:22 | disposition home or self-care (01) ==
PROVIDERS: Student in an Organized Health Care Education/Training Program; Emergency Provider Emergency Medicine; PCP Student in an Organized Health Care Education/Training Program
DX: J18.9 Pneumonia, unspecified organism (principal); R50.9 Fever, unspecified; E78.5 Hyperlipidemia, unspecified; I10 Essential (primary) hypertension; F17.290 Nicotine dependence, other tobacco product, uncomplicated; Z20.822 Contact with and (suspected) exposure to COVID-19
CPT/HCPCS: 36415; 71046; 74176; 80053; 81001; 83605; 85025; 87637; 99284

== ENCOUNTER 2024-08-30 08:31 | Day surgery (SDC) | payer MEDICARE, MEDICAID, SELFPAY ==
[2024-08-19 09:16] VITALS: BMI 32.2
--- NOTE | ~2024-08-30 | XR_ITS ---
EXAMINATION: XR fluoroscopy no charge DATE: 08/30/2024 09:51 INDICATION: Lumbosacral spondylosis. Chronic low back pain. TECHNIQUE: 6 intraoperative fluoroscopic views of the lumbar spine were obtained. I was not present. Fluoroscopy exposure time was 14 seconds. COMPARISON: None. FINDINGS: There are needles for left medial branch blocks at L3, L4, and L5. IMPRESSION: 1. Left medial branch blocks at L3, L4, and L5. Reviewed, dictated and finalized at location A. DESKMAN
--- NOTE | 2024-08-30 05:12 | PM.HPGS ---
History of Present Illness History of Present Illness Consent: Risks, benefits, and alternatives have been discussed and questions answered. Patient agrees to proceed with procedure. Chief complaint: Lumbosacral Spondylosis , chronic low back pain Narrative: Michael Hodgson is a 53 year old male with chronic, recalcitrant and disabling left-sided lumbosacral back pain secondary to degenerative spondylosis with failure to respond to aggressive conservative measures including PT, oral and topical analgesics, opioid and nonopioid analgesics, rest, time and activity/behavioral modification over the past 1-2 years who presents for diagnostic/prognostic medial branch blocks of the left L3, L4, L5 medial branches/dorsal ramus(#1) addressing the ipsilateral L4-5, L5-S1 facet joints under fluoroscopic guidance and with contrast control. Review of Systems Review of Systems: Patient denies any new infectious, allergic, cardiopulmonary, neurologic or constitutional symptoms or changes in activity tolerance or exercise capacity including new or progressive SOB/SUAREZ, peripheral edema, productive cough, dysuria, nausea/vomiting, diarrhea, weight change, fevers/chills/night sweats, new or progressive neurologic deficit, cognitive or mood changes since last seen, except as documented in the HPI. All systems reviewed & are unremarkable except as noted in HPI and below PMFSH Past Medical History Medical History Chronic pain Chronic radicular pain of lower back Deviated nasal septum History of opioid abuse Hyperlipidemia Hypersomnia Hypertension Increased BMI PONV (postoperative nausea and vomiting) Sleep apnea Sleep walking Tobacco abuse Surgical History Surgical History H/O sinus surgery History of laparoscopic cholecystectomy on 05/21/23 [facility] Family History Family History Mother Patient's mother is in good health Father Patient's father is in good health Social History Social History Social History: current smoker Smoking packs per day: 1 Smoking cigarettes per day: 20.0 Years smoked: 35 Smoking pack-years: 35.00 Smoking status: Current every day smoker Tobacco type: e-cigarettes/vaping Additional smoking assessment comments: stopped smoking cigaretts a year ago. now vaps refills every 10 days Alcohol intake: former Substance use: former Substance use type: marijuana Last use: 21 years ago Do You Feel Safe in your Home?: Yes Lack of Transportation: No Lack of Food: Never True Current Housing: I Have Housing Concerned About Future Housing: No Difficulty Paying Gas/Electric Bills: No Difficulty Paying for Meds: No Currently Unemployed: No Education: Grade School Difficulty w/ Childcare or Family Care: No Living arrangements: with family Spiritual care concerns: No Meds Home Medications and Allergies Home Medications Medication Instructions Recorded Confirmed Type buprenorphine 4 mg-naloxone 1 mg 1 film sublingual DAILY 03/05/22 08/19/24 History sublingual film (Suboxone) lisinopril 20 mg tablet 20 mg PO DAILY 07/07/22 08/19/24 History omeprazole 40 mg capsule,delayed 40 mg PO DAILY 11/05/22 08/19/24 History release fluticasone propionate 50 1 - 2 spray intranasal BID PRN 05/19/23 08/19/24 History mcg/actuation nasal Congestion spray,suspension linaclotide 290 mcg capsule 290 mcg PO DAILY 05/19/23 08/19/24 History multivit,Ca,min-iron 8 mg-folic 1 tablet PO DAILY 05/19/23 08/19/24 History acid 200 mcg-lycopene 600 mcg tablet (Centrum Men) baclofen 10 mg tablet 10 mg PO DAILY 11/05/23 08/19/24 History amitriptyline 50 mg tablet 50 mg PO HS #90 tabs 05/13/24 08/19/24 Rx gabapentin 600 mg tablet 600 mg PO TID #90 tabs 06/18/24 08/19/24 Rx folic acid 1 mg tablet 1 mg PO DAILY 08/19/24 08/19/24 History rosuvastatin 10 mg tablet 10 mg PO DAILY 08/19/24 08/19/24 History Allergies Allergy/AdvReac Type Severity Reaction Status Date / Time Penicillins Allergy Unknown Anaphylaxis Verified 07/19/24 13:40 Exam Narrative: The patient's physical exam is essentially unchanged from prior examination on 07/19/2024. Specifically, patient demonstrates normal lung capacity, tidal volume and respiratory rate without wheezes, crackles, rales or rubs. Heart rate and rhythm are regular without murmurs, gallops or rubs. No JVD. Pulses 2+ globally without increasing peripheral edema. AAOx3, NC/AT without acute distress or altered consciousness. Speech, cognition, mood and judgment at baseline and within normal limits. Const: General: cooperative, no acute distress, alert, awake and Physically active Orientation/consciousness: patient oriented x3 Limitations: no limitations Assessment and Plan Assessment and plan (1) Lumbosacral spondylosis: Code(s): M47.817 - Spondylosis without myelopathy or radiculopathy, lumbosacral region Status: Acute Assessment and Plan: proceed as planned with diagnostic/prognostic left L3, L4, L5 medial branch/ dorsal ramus nerve blocks (# 1) under fluoroscopic guidance (2) Dorsalgia: Code(s): M54.9 - Dorsalgia, unspecified Status: Acute (3) Chronic pain: Code(s): G89.29 - Other chronic pain Status: Acute
--- NOTE | 2024-08-30 05:18 | WPDHPUPDATE1 ---
History and Physical Update Update Date/Time: 08/30/24 05:18 History and Physical has been reviewed, including an updated exam of the patient. There are NO changes in the patient's condition. Risks, benefits, and alternatives have been discussed and questions answered. Patient agrees to proceed with procedure.
--- NOTE | 2024-08-30 05:19 | P.OP_ITS ---
Procedure Note - Detailed Date of Procedure 08/30/24 Pre-op Diagnosis Lumbosacral Spondylosis , chronic low back pain Post-op Diagnosis Same Procedure Performed Diagnostic left Lumbar Medial Branch/Dorsal Ramus Blocks at L3, L4, L5 Sarah ting the Ipsilateral L4-5, L5-S1 Facet Joints Under Fluoroscopic Guidance and with Contrast Control. (2 levels blocked). Surgeon Jesu Neal MD Start Up Specialist None. Anesthesia Local Description of Procedure INFORMED CONSENT: Risks, benefits and alternatives to the procedure were discussed in detail with the patient who expressed explicit understanding and consent to proceed. Patient was informed verbally and in written form regarding the risks associated with the procedure including the low risk of serious infection, bleeding/bruising, allergic reaction, nerve or organ injury, paralysis, procedural site pain or discomfort, worsening pain and/or mobility, failure to treat and/or disfigurement. The patient expressed explicit understanding and consent to proceed. All materials required for the procedure were available prior to procedure start. Site and side were marked prior to procedure and confirmed in the presence of the patient. PROCEDURE IN DETAIL: The patient was brought to the procedural suite and placed in the prone position. Patient was made comfortable with use of pillows under the head/chest, hips and ankles. Skin overlying the injection site on the affected side(s) was prepared broadly with ChloraPrep applicator and draped in a sterile manner. Aseptic technique was used throughout. The endplates of the vertebral bodies at the site(s) of interest were aligned in the AP view. Ipsila teral oblique angulation was utilized to optimize visualization of the intersection between the superior articulating process and transverse process at each target site. Local anesthesia was established by infiltration with approximately 5 mL of 1% lidocaine via a 1-1/2 inch 27-gauge needle. A 25-gauge 5.0 inch Quincke spinal needle was advanced until the needle tip contacted periosteum at the target site, left L3. Lateral view was utilized to confirm the appropriate placement of the needle tip just anterior to the facet line and superior to the pedicle. In the Lateral view, 0.25 mL of Omnipaque 300 contrast medium was injected after negative aspiration for CSF, blood or other bodily fluid, showing appropriate extra-articular spread of contrast without evidence of intravascular, foraminal or intrathecal placement. A 0.5 mL solution of 0.5% PF bupivacaine was injected after negative repeat aspiration. Appropriate spread of the injectate was confirmed with washout of previously injected contrast. No parasthesias were elicited. Needle was removed completely intact without difficulty. The same exact procedure was repeated for all remaining levels on the ipsilateral side, left L4, L5 medial branches/dorsal ramus, modified as necessary to accommodate for the new target location with identical findings and results and no evidence of complication. Images were saved and documented in the patient chart. Patient's skin was cleaned and sterile bandage applied. The patient tolerated the procedure well. The patient was transported to the recovery area in stable condition where they were observed for an appropriate amount of time prior to discharge, without evidence of complication. Patient was instructed on the appropriate completion of a pain diary over the next 12-24 hours. The patient was instructed to avoid excessive activity for the next 48 hours, including climbing and frequent use of stairs. Showers only for 48 hours. They were instructed not to drive or operate heavy machinery for 24 hours. They are to monitor for severe headaches, fevers, chills, night sweats, erythema/swelling at the site or any other signs of infection, bleeding/bruising, bowel or bladder changes as well as new pain, weakness or numbness in the upper or lower extremity. Should they notice these changes, they are instructed to call our office immediately or report directly to the nearest Emergency Department if no answer or if after posted office hours. COMPLICATIONS: None COMMENTS: None CONTRAST WASTED: 29.25mL Omnipaque 300. Complications No immediate complications Condition Stable Disposition Same day [facility] Billing Surgery - Charge Forward: Surgery Billing
[2024-08-30 09:16] VITALS: BP 177/83; PULSE 93; RESP 18; TEMP 36.6; O2SAT 99
[2024-08-30 09:43] VITALS: BP 135/75; PULSE 88; RESP 18; O2SAT 95
[2024-08-30 09:48] VITALS: BP 141/76; PULSE 86; RESP 18; O2SAT 96
[2024-08-30] MEDS: LIDOCAINE HCL 1% LOCAL INJ 20 ML VIAL 5 ML INFILTRATE (09:49)
[2024-08-30] MEDS: BUPIVACAINE/EPINEPHRINE 0.5% 10 ML VIAL INFILTRATE (09:50)
[2024-08-30 09:53] VITALS: BP 138/95; PULSE 87; RESP 18; O2SAT 98
== END 2024-08-30 10:07 | disposition home or self-care (01) ==
PROVIDERS: PCP Student in an Organized Health Care Education/Training Program; Visit Provider Anesthesiology Pain Medicine
PROC: (CPT 64493; principal; 2024-08-30 09:00)
DX: M47.817 Spondylosis without myelopathy or radiculopathy, lumbosacral region (principal); M54.59 Other low back pain
CPT/HCPCS: 64493; 64494; 99199